=== PATIENT | male | born 1950 | race Caucasian/White ===

== ENCOUNTER 2016-09-05 18:07 | Inpatient (IN) | payer BC, OTHER ==
[~2016-09-05] VITALS: Ht 180.3 cm; Wt 88.4 kg
[2016-09-05] MEDS ORDERED: ASPIRIN 81 MG CHEW PO STA ×2 (18:50→19:58)
--- NOTE | 2016-09-05 18:56 | EMERGENCY ROOM VISIT NOTE ---
History Report prepared by Sarahy: Sandie Patricia Under the Supervision of: Dr. Dmitry Trinh M.D. First contact with patient: 18:46 Chief Complaint: CARDIAC ASSESSMENT Stated Complaint: PRESSURE IS WEAK, CHEST PAIN Nursing Triage Summary: Pt c/o generalized chest tightness x1 month Pt reports pressure radiates into throat History of Present Illness The patient is a 66 year old male who presents to the Emergency Room via significant other with complaints of episodes of chest pain with onset one month ago. The patient has developed chest pressure when he exerts himself. He notes that the pressure is severe, to the point where he must stop what he is doing when he gets the chest pressure. Eating also worsens the chest pressure. The patient states that the pressure radiates into his throat. He becomes short of breath with the episodes of chest pressure. He denies becoming sweaty or nauseous during these episodes, that the pressure radiates into his back or arms , black or bloody stools, pain with deep breaths. The patient states that the pressure became much worse today. The patient notes that he does not have the chest pressure if he is sitting down. Source of History: patient, spouse/significant other Onset: one month ago Position: chest Quality: other (chest pressure ) Timing: other (episodes ) Modifying Factors (Worsening): exertion, eating Modifying Factors (Relieving): rest Associated Symptoms: No diaphoresis, No melena, No nausea Note: He denies hat the pressure radiates into his back or arms, pain with deep breaths. Review of Systems See HPI for pertinent positives & negatives. A total of 10 systems reviewed and were otherwise negative. Past Medical & Surgical Medical Problems: (1) Asthma (2) Exertional angina (3) Hypertension Old medical records were reviewed. Nurse's notes were reviewed and I agree with. Denies history diabetes or prior cardiac disease Hypertension denies increased cholesterol Family History FH: heart disease Significant family history with siblings and parents having premature cardiac disease Social History Smoking Status: Never Smoker Drug Use: none Marital Status: in relationship Occupation Status: employed Current/Historical Medications Scheduled Amlodipine (Norvasc), 10 MG PO QPM Mometasone Furoate (Inhalation (Asmanex Hfa), 1 PUFF PO BID Tadalafil (Cialis), 20 MG PO UD Scheduled PRN Albuterol (Ventolin Hfa), 2 PUFF INH Q6 PRN for SOB/Wheezing Allergies Coded Allergies: Tetanus Toxoid (Unverified Allergy, Unknown, SWELLING TO EXTREMITY, ) Physical Exam Vital Signs Date Time Temp Pulse Resp B/P Pulse Ox O2 Delivery O2 Flow Rate FiO2 09/05/16 19:31 110 09/05/16 19:14 113 20 174/109 98 Room Air 09/05/16 19:09 98 Room Air 09/05/16 18:11 97 Room Air 09/05/16 18:11 36.6 112 20 173/104 98 Room Air Physical Exam General: Non ill appearing middle aged male, in no acute distress, presently pain free HEENT: Normal cephalic atraumatic. Pupils are equal round and reactive to light. Sclerae anicteric. Extraocular movements are intact. Oropharynx is pink with moist mucous membranes. No swelling of the mouth lips or tongue. Neck: Supple with a midline trachea. No meningeal signs or stiffness, no JVD or bruits. No Stridor. Chest: Clear to auscultation bilaterally. No wheezes or rhonchi. No increased work of breathing. Heart: regular rate and rhythm. Abdomen: Soft nontender, nondistended without rebound guarding or rigidity. Extremities: No cyanosis clubbing or edema. No calf tenderness or assymetry Spine/Back. Non tender to palpation. No CVA tenderness Skin: Good turgor without rashes. Neurologic exam: Cranial nerves two through 12 are intact. Motor and sensation are intact and symmetrical throughout. Medical Decision & Procedures ER Provider Diagnostic Interpretation: X-ray results as stated below per interpretation by me and the radiologist: CHEST ONE VIEW PORTABLE CLINICAL HISTORY: CHEST PAIN dyspnea COMPARISON STUDY: No previous studies for comparison. FINDINGS: The bones soft tissues and hemidiaphragms are normal. The cardiomediastinal silhouette is normal. The lungs are clear. The pulmonary vasculature is normal. IMPRESSION: Negative chest. Electronically signed by: Maurice Thapa M.D. 09/05/2016 7:17 PM Dictated Date/Time: 09/05/2016 7:16 PM Laboratory Results 09/05/16 19:00 Red Blood Count 5.21, Mean Corpuscular Volume 92.1, Mean Corpuscular Hemoglobin 32.1, Mean Corpuscular Hemoglobin Concent 34.8, Mean Platelet Volume 9.1, Neutrophils (%) (Auto) 58.0, Lymphocytes (%) (Auto) 26.7, Monocytes (%) (Auto) 10.0, Eosinophils (%) (Auto) 4.3, Basophils (%) (Auto) 0.6, Neutrophils # (Auto ) 4.19, Lymphocytes # (Auto) 1.93, Monocytes # (Auto) 0.72, Eosinophils # (Auto ) 0.31, Basophils # (Auto) 0.04 09/05/16 19:00 Test 09/05/16 19:00 09/05/16 19:04 White Blood Count 7.22 K/uL (4.8-10.8) Red Blood Count 5.21 M/uL (4.7-6.1) Hemoglobin 16.7 g/dL (14.0-18.0) Hematocrit 48.0 % (42-52) Mean Corpuscular Volume 92.1 fL (80-100) Mean Corpuscular Hemoglobin 32.1 pg (25-34) Mean Corpuscular Hemoglobin Concent 34.8 g/dl (32-36) Platelet Count 239 K/uL (130-400) Mean Platelet Volume 9.1 fL (7.4-10.4) Neutrophils (%) (Auto) 58.0 % Lymphocytes (%) (Auto) 26.7 % Monocytes (%) (Auto) 10.0 % Eosinophils (%) (Auto) 4.3 % Basophils (%) (Auto) 0.6 % Neutrophils # (Auto) 4.19 K/uL (1.4-6.5) Lymphocytes # (Auto) 1.93 K/uL (1.2-3.4) Monocytes # (Auto) 0.72 K/uL (0.11-0.59) Eosinophils # (Auto) 0.31 K/uL (0-0.5) Basophils # (Auto) 0.04 K/uL (0-0.2) RDW Standard Deviation 42.1 fL (36.4-46.3) RDW Coefficient of Variation 12.5 % (11.5-14.5) Immature Granulocyte % (Auto) 0.4 % Immature Granulocyte # (Auto) 0.03 K/uL (0.00-0.02) Prothrombin Time 10.2 SECONDS (9.0-12.0) Prothromb Time International Ratio 1.0 (0.9-1.1) Activated Partial Thromboplast Time 27.3 SECONDS (21.0-31.0) Partial Thromboplastin Ratio 1.1 Anion Gap 9.0 mmol/L (3-11) Est Creatinine Clear Calc Drug Dose 70.6 ml/min Estimated GFR () 73.1 Estimated GFR (Non- 63.1 BUN/Creatinine Ratio 16.4 (10-20) Calcium Level 9.8 mg/dl (8.5-10.1) Total Bilirubin 0.3 mg/dl (0.2-1) Direct Bilirubin < 0.1 mg/dl (0-0.2) Aspartate Amino Transf (AST/SGOT) 18 U/L (15-37) Alanine Aminotransferase (ALT/SGPT) 26 U/L (12-78) Alkaline Phosphatase 82 U/L (45-117) Total Protein 8.1 gm/dl (6.4-8.2) Albumin 4.3 gm/dl (3.4-5.0) Lipase 134 U/L (73-393) Hepatitis C Antibody Screen NEG (NEG) Bedside Troponin I 0.000 ng/ml (0-0.045) Laboratory studies as stated above per my review. ECG Indication: chest pain Rate (beats per minute): 111 Rhythm: sinus tachycardia Findings: no acute ischemic change, left axis deviation, other ( poor baseline) Comparison ECG Date: no prior available Change: EKG 2: Sinus tachycardia, rate 109, short AK interval, no ischemia, no significant change when compared to EKG 2. ED Course 184: Past medical records reviewed. The patient was evaluated in room C2, and a complete history and physical examination were performed. 1850: Aspirin 324 mg PO 1930: Upon reevaluation, the patient is resting comfortably. I discussed the results and treatment plan with the patient. He verbalized agreement of the treatment plan. The patient will be evaluated for further management. 1930: I discussed the case with Dr. Roche ([facility]); he will further evaluate the patient. Medical Decision Differentials include, but are not limited to; unstable angina, acute coronary syndrome, electrolyte or metabolic abnormality, anemia, GERD. This patient comes in as described above. He was placed in room C2. He was placed in the triage system as a priority patient and I saw him promptly. He is here for treatment and evaluation of exertional chest pain. He is pain-free at present but with minimal exertion he gets chest pain which is alleviated by rest. He does have a significant cardiac risk factors with strong family history and hypertension. I ordered aspirin but he declined as he says it gives him significant GI upset if he takes anything without food and will start giving him chest pain. EKG does not show any acute ischemic changes or ectopy. I did a second EKG while was here and there is no change compared to the first. Chest x-ray does not show congestive heart failure pneumonia or pneumothorax. Cardiac enzymes are negative thus far. Given his history, I'm very concerned for unstable angina. I do think he needs to be admitted for further treatment and evaluation. I have consult the [facility] hospitalist who saw him in the ER and will admit him for these measures. Consults Time Called: 1929 Consulting Physician: Dr. Roche ([facility]) Returned Call: 1930 I discussed the case with Dr. Roche ([facility]); he will further evaluate the patient. Impression Primary Impression: Unstable angina Additional Impression: Chest pain, precordial Scribe Attestation The scribe's documentation has been prepared under my direction and personally reviewed by me in its entirety. I confirm that the note above accurately reflects all work, treatment, procedures, and medical decision making performed by me. Departure Information Dispostion Being Evaluated By Hospitalist Referrals No Doctor, Assigned (PCP) Patient Instructions My [facility] Problem Qualifiers
[2016-09-05 19:11] LABS: BASO % 0.6 %; BASO ABS # 0.04 K/uL (0-0.2); COMPLETE YES; EOS % 4.3 %; IG% 0.4 %; LYMPH % 26.7 %; LYMPH ABS # 1.93 K/uL (1.2-3.4); MEAN CELL VOLUME 92.1 fL (80-100); MEAN CORPUSCULAR HEMOGLOBIN 32.1 pg (25-34); MEAN CORPUSCULAR HGB CONC 34.8 g/dl (32-36); MEAN PLATELET VOLUME 9.1 fL (7.4-10.4); PLATELET COUNT 239 K/uL (130-400); RED BLOOD COUNT 5.21 M/uL (4.7-6.1); WHITE BLOOD COUNT 7.22 K/uL (4.8-10.8)
--- NOTE | 2016-09-05 19:18 | DIAGNOSTIC IMAGING REPORT ---
CHEST ONE VIEW PORTABLE CLINICAL HISTORY: CHEST PAIN dyspnea COMPARISON STUDY: No previous studies for comparison. FINDINGS: The bones soft tissues and hemidiaphragms are normal. The cardiomediastinal silhouette is normal. The lungs are clear. The pulmonary vasculature is normal. IMPRESSION: Negative chest. Electronically signed by: Maurice Thapa M.D. 09/05/2016 7:17 PM Dictated Date/Time: 09/05/2016 7:16 PM
[2016-09-05 19:21] LABS: PARTIAL THROMBOPLASTIN RATIO 1.1; PROTHROMBIN TIME (PATIENT) 10.2 SECONDS (9.0-12.0)
[2016-09-05 19:28] LABS: ALT/SGPT 26 U/L (12-78); BLOOD UREA NITROGEN 20 mg/dl (7-18); BUN/CREATININE RATIO 16.4 (10-20); CALCIUM 9.8 mg/dl (8.5-10.1); CARBON DIOXIDE 27 mmol/L (21-32); CHLORIDE 103 mmol/L (98-107); GLUCOSE 93 mg/dl (70-99); POTASSIUM 3.9 mmol/L (3.5-5.1); SODIUM 139 mmol/L (136-145)
[2016-09-05 19:33] LABS: ALKALINE PHOSPHATASE 82 U/L (45-117); AST/SGOT 18 U/L (15-37)
[2016-09-05] MEDS ORDERED: MOME16.7 PO (19:33)
[2016-09-05] MEDS ORDERED: AMLO-114 PO (19:33)
[2016-09-05] MEDS ORDERED: ALBUTEROL HFA 8 GM INHALER INH PRN (20:00)
[2016-09-05] MEDS ORDERED: NITROGLYCERIN 0.4 MG SL PER TAB CHARGE SL PRN (20:00)
[2016-09-05] MEDS ORDERED: TADA10TA PO (20:00)
[2016-09-05] MEDS ORDERED: ONDANSETRON INJ 2 MG/ML 2 ML VIAL IV PRN (20:00)
[2016-09-05] MEDS ORDERED: ACETAMINOPHEN 325 MG TAB PO PRN (20:00)
[2016-09-05] MEDS ORDERED: PRVHFAIN INH (20:00)
[2016-09-05] MEDS ORDERED: ASPIRIN 81 MG CHEW ONE (20:41)
[2016-09-05 21:11] VITALS: BP 177/116; PULSE 121; TEMP 36.6; O2SAT 92; Ht 180.3 cm; Wt 88.4 kg
[2016-09-05] MEDS ORDERED: METOPROLOL TARTRATE 1 MG/ML VIAL IV PRN (21:30)
--- NOTE | 2016-09-05 21:36 | History and Physical ---
History & Physical Date & Time of Service: Sep 05, 2016 at 21:25 Chief Complaint: Exertional Angina Primary Care Physician: Dustin Salazar M.D. History of Present Illness Source: patient, spouse, clinic records, hospital records Patient is a 66 y/o male with a h/o GERD who presents for evaluation of exertional chest pain. Patient notes upper chest/throat tightness that radiates to the jaw with exertion for the past month. He denies any pain/tightness at rest. Patient states that he has never experienced anything like this before. Patient notes a longstanding h/o heartburn since childhood, but these current symptoms feel distinctly different. He is occasionally compliant with his amlodipine. He is a nonsmoker. His FMHx is significant for father and brother with heart disease in their 50's and mother with heart disease in her 70's. In the ED, troponin was negative and EKG did not show any ischemic changes. Past Medical/Surgical History Medical Problems: (1) Asthma Status: Chronic Family History FH: heart disease Social History Smoking Status: Unknown if Ever Smoked Drug Use: none Marital Status: in relationship Occupational Status: employed Allergies Coded Allergies: Tetanus Toxoid (Unverified Allergy, Unknown, SWELLING TO EXTREMITY, ) Home Medications Scheduled Amlodipine (Norvasc), 10 MG PO QPM Mometasone Furoate (Inhalation (Asmanex Hfa), 1 PUFF PO BID Tadalafil (Cialis), 20 MG PO UD Scheduled PRN Albuterol (Ventolin Hfa), 2 PUFF INH Q6 PRN for SOB/Wheezing Review of Systems Constitutional- denies fevers or chills Eyes- denies sudden vision changes ENT- denies sore throat or congestion Pulmonary- denies SOB or cough Cardiac- see above GI- denies abdominal pain, nausea, vomiting, diarrhea - denies dysuria or hematuria Musculoskeletal- denies joint pain or swelling Dermatologic- denies rash or bruise Neuro- denies weakness, numbness or tingling Psych- denies depression or anxiety . Physical Exam Vital Signs Date Time Temp Pulse Resp B/P Pulse Ox O2 Delivery O2 Flow Rate FiO2 09/05/16 21:11 36.6 121 18 177/116 92 Room Air 09/05/16 20:38 113 20 148/107 95 09/05/16 19:31 110 09/05/16 19:14 113 20 174/109 98 Room Air 09/05/16 19:09 98 Room Air 09/05/16 18:11 97 Room Air 09/05/16 18:11 36.6 112 20 173/104 98 Room Air General- awake; alert; NAD Eyes- EOMI; no scleral icterus Neck- no stridor; trachea midline Lungs- CTA bilaterally; no wheezes/crackles Heart- RRR; no m/r/g Abdomen- soft; NTND; nBS Back- no gross abnormalities Extremities- no c/c/e; no deformity Neuro- no focal deficits Skin- no appreciable rash or bruise . Diagnostics Laboratory Results Results Past 24 Hours Test 09/05/16 18:50 09/05/16 19:00 09/05/16 19:04 09/05/16 21:18 Range/Units Creatine Kinase MB Ratio 1.0 0-3.0 White Blood Count 7.22 4.8-10.8 K/uL Red Blood Count 5.21 4.7-6.1 M/uL Hemoglobin 16.7 14.0-18.0 g/dL Hematocrit 48.0 42-52 % Mean Corpuscular Volume 92.1 80-100 fL Mean Corpuscular Hemoglobin 32.1 25-34 pg Mean Corpuscular Hemoglobin Concent 34.8 32-36 g/dl Platelet Count 239 130-400 K/uL Mean Platelet Volume 9.1 7.4-10.4 fL Neutrophils (%) (Auto) 58.0 % Lymphocytes (%) (Auto) 26.7 % Monocytes (%) (Auto) 10.0 % Eosinophils (%) (Auto) 4.3 % Basophils (%) (Auto) 0.6 % Neutrophils # (Auto) 4.19 1.4-6.5 K/uL Lymphocytes # (Auto) 1.93 1.2-3.4 K/uL Monocytes # (Auto) 0.72 0.11-0.59 K/uL Eosinophils # (Auto) 0.31 0-0.5 K/uL Basophils # (Auto) 0.04 0-0.2 K/uL RDW Standard Deviation 42.1 36.4-46.3 fL RDW Coefficient of Variation 12.5 11.5-14.5 % Immature Granulocyte % (Auto) 0.4 % Immature Granulocyte # (Auto) 0.03 0.00-0.02 K/uL Prothrombin Time 10.2 9.0-12.0 SECONDS Prothromb Time International Ratio 1.0 0.9-1.1 Activated Partial Thromboplast Time 27.3 21.0-31.0 SECONDS Partial Thromboplastin Ratio 1.1 Sodium Level 139 136-145 mmol/L Potassium Level 3.9 3.5-5.1 mmol/L Chloride Level 103 98-107 mmol/L Carbon Dioxide Level 27 21-32 mmol/L Anion Gap 9.0 3-11 mmol/L Blood Urea Nitrogen 20 7-18 mg/dl Creatinine 1.20 0.60-1.40 mg/dl Est Creatinine Clear Calc Drug Dose 70.6 ml/min Estimated GFR () 73.1 Estimated GFR (Non- 63.1 BUN/Creatinine Ratio 16.4 10-20 Random Glucose 93 70-99 mg/dl Calcium Level 9.8 8.5-10.1 mg/dl Total Bilirubin 0.3 0.2-1 mg/dl Direct Bilirubin < 0.1 0-0.2 mg/dl Aspartate Amino Transf (AST/SGOT) 18 15-37 U/L Alanine Aminotransferase (ALT/SGPT) 26 12-78 U/L Alkaline Phosphatase 82 45-117 U/L Total Creatine Kinase 199 39-308 U/L Creatine Kinase MB 2.0 0.5-3.6 ng/ml Total Protein 8.1 6.4-8.2 gm/dl Albumin 4.3 3.4-5.0 gm/dl Lipase 134 73-393 U/L Bedside Troponin I 0.000 0-0.045 ng/ml Diagnostic Radiology CXR Negative chest. EKG No acute ischemic changes Impression Assessment and Plan Patient is a 66 y/o male with a h/o HTN and significant FMHx who presents for evaluation of exertional chest tightness x1 month. Exertional angina - history very concerning for cardiac etiology - trend cardiac enzymes - Cardiology consult: determine stress vs cath - aspirin HTN - continue amlodipine - metoprolol PRN GERD - start pantoprazole Mild asthma - not active - continue inhalers DVT prophylaxis with SCDs Advanced Directives Existing Living Will: No Existing Power of Health Inspector Food: No VTE Prophylaxis VTE Risk Assessment Done? Y/N: Yes Risk Level: Low
[2016-09-05] MEDS: AMLODIPINE BESYLATE 5 MG TAB PO SCH (23:27)
[2016-09-05] MEDS: MOMETASONE FUROATE 14 PUFF/1 INHALER INH SCH (23:27)
[2016-09-05 23:58] VITALS: BP 153/99; PULSE 100; TEMP 36.7; O2SAT 98
[2016-09-05 23:59] VITALS: O2SAT 98
[2016-09-06] VITALS (8 sets, daily range): BP systolic 129–152; BP diastolic 84–108; PULSE 100–116; TEMP 36.4–36.6; O2SAT 94–99
[2016-09-06 01:43] LABS: CKMB/CK RATIO 0.8 (0-3.0)
[2016-09-06] MEDS: PANTOprazole SOD 40 MG TAB PO SCH (05:45)
[2016-09-06] MEDS ORDERED: POTASSIUM CHLORIDE 10 MEQ TABCR PO STA (06:02)
[2016-09-06] MEDS ORDERED: METOPROLOL TARTRATE 25 MG TAB PO ONE (06:02)
--- NOTE | 2016-09-06 06:04 | Progress Note ---
Internal Med Progress Note Date of Service: Sep 06, 2016. Provider Documentation: Made aware by RN of PVCs. initiate low dose BB to suppress ectopy additional K given Vital Signs: Date Time Temp Pulse Resp B/P Pulse Ox O2 Delivery O2 Flow Rate FiO2 09/06/16 07:57 36.6 101 18 145/91 97 Room Air 09/06/16 04:00 98 Room Air 09/06/16 03:40 36.6 106 16 129/84 96 Room Air 09/05/16 23:59 98 Room Air 09/05/16 23:58 36.7 100 17 153/99 98 Room Air 09/05/16 22:36 120 161/106 09/05/16 21:11 36.6 121 18 177/116 92 Room Air 09/05/16 20:38 113 20 148/107 95 09/05/16 19:31 110 09/05/16 19:14 113 20 174/109 98 Room Air 09/05/16 19:09 98 Room Air 09/05/16 18:11 97 Room Air 09/05/16 18:11 36.6 112 20 173/104 98 Room Air Lab Results: Results Past 24 Hours Test 09/05/16 18:50 09/05/16 19:00 09/05/16 19:04 09/06/16 01:05 Range/Units Creatine Kinase MB Ratio 1.0 0.8 0-3.0 White Blood Count 7.22 4.8-10.8 K/uL Red Blood Count 5.21 4.7-6.1 M/uL Hemoglobin 16.7 14.0-18.0 g/dL Hematocrit 48.0 42-52 % Mean Corpuscular Volume 92.1 80-100 fL Mean Corpuscular Hemoglobin 32.1 25-34 pg Mean Corpuscular Hemoglobin Concent 34.8 32-36 g/dl Platelet Count 239 130-400 K/uL Mean Platelet Volume 9.1 7.4-10.4 fL Neutrophils (%) (Auto) 58.0 % Lymphocytes (%) (Auto) 26.7 % Monocytes (%) (Auto) 10.0 % Eosinophils (%) (Auto) 4.3 % Basophils (%) (Auto) 0.6 % Neutrophils # (Auto) 4.19 1.4-6.5 K/uL Lymphocytes # (Auto) 1.93 1.2-3.4 K/uL Monocytes # (Auto) 0.72 0.11-0.59 K/uL Eosinophils # (Auto) 0.31 0-0.5 K/uL Basophils # (Auto) 0.04 0-0.2 K/uL RDW Standard Deviation 42.1 36.4-46.3 fL RDW Coefficient of Variation 12.5 11.5-14.5 % Immature Granulocyte % (Auto) 0.4 % Immature Granulocyte # (Auto) 0.03 0.00-0.02 K/uL Prothrombin Time 10.2 9.0-12.0 SECONDS Prothromb Time International Ratio 1.0 0.9-1.1 Activated Partial Thromboplast Time 27.3 21.0-31.0 SECONDS Partial Thromboplastin Ratio 1.1 Sodium Level 139 136-145 mmol/L Potassium Level 3.9 3.5-5.1 mmol/L Chloride Level 103 98-107 mmol/L Carbon Dioxide Level 27 21-32 mmol/L Anion Gap 9.0 3-11 mmol/L Blood Urea Nitrogen 20 7-18 mg/dl Creatinine 1.20 0.60-1.40 mg/dl Est Creatinine Clear Calc Drug Dose 70.6 ml/min Estimated GFR () 73.1 Estimated GFR (Non- 63.1 BUN/Creatinine Ratio 16.4 10-20 Random Glucose 93 70-99 mg/dl Calcium Level 9.8 8.5-10.1 mg/dl Total Bilirubin 0.3 0.2-1 mg/dl Direct Bilirubin < 0.1 0-0.2 mg/dl Aspartate Amino Transf (AST/SGOT) 18 15-37 U/L Alanine Aminotransferase (ALT/SGPT) 26 12-78 U/L Alkaline Phosphatase 82 45-117 U/L Total Creatine Kinase 199 157 39-308 U/L Creatine Kinase MB 2.0 1.3 0.5-3.6 ng/ml Total Protein 8.1 6.4-8.2 gm/dl Albumin 4.3 3.4-5.0 gm/dl Lipase 134 73-393 U/L Hepatitis C Antibody Screen NEG NEG Bedside Troponin I 0.000 0-0.045 ng/ml Troponin I < 0.015 0-0.045 ng/ml Test 09/06/16 06:30 Range/Units White Blood Count 5.25 4.8-10.8 K/uL Red Blood Count 4.80 4.7-6.1 M/uL Hemoglobin 14.8 14.0-18.0 g/dL Hematocrit 43.3 42-52 % Mean Corpuscular Volume 90.2 80-100 fL Mean Corpuscular Hemoglobin 30.8 25-34 pg Mean Corpuscular Hemoglobin Concent 34.2 32-36 g/dl Platelet Count 219 130-400 K/uL Mean Platelet Volume 8.8 7.4-10.4 fL Neutrophils (%) (Auto) 56.0 % Lymphocytes (%) (Auto) 26.1 % Monocytes (%) (Auto) 11.8 % Eosinophils (%) (Auto) 5.3 % Basophils (%) (Auto) 0.6 % Neutrophils # (Auto) 2.94 1.4-6.5 K/uL Lymphocytes # (Auto) 1.37 1.2-3.4 K/uL Monocytes # (Auto) 0.62 0.11-0.59 K/uL Eosinophils # (Auto) 0.28 0-0.5 K/uL Basophils # (Auto) 0.03 0-0.2 K/uL RDW Standard Deviation 41.0 36.4-46.3 fL RDW Coefficient of Variation 12.4 11.5-14.5 % Immature Granulocyte % (Auto) 0.2 % Immature Granulocyte # (Auto) 0.01 0.00-0.02 K/uL Activated Partial Thromboplast Time 27.7 21.0-31.0 SECONDS Partial Thromboplastin Ratio 1.1 Sodium Level 140 136-145 mmol/L Potassium Level 3.8 3.5-5.1 mmol/L Chloride Level 106 98-107 mmol/L Carbon Dioxide Level 25 21-32 mmol/L Anion Gap 9.0 3-11 mmol/L Blood Urea Nitrogen 17 7-18 mg/dl Creatinine 1.10 0.60-1.40 mg/dl Est Creatinine Clear Calc Drug Dose 71.3 ml/min Estimated GFR () 81.2 Estimated GFR (Non- 70.1 BUN/Creatinine Ratio 15.2 10-20 Random Glucose 102 70-99 mg/dl Calcium Level 9.1 8.5-10.1 mg/dl Magnesium Level 2.2 1.8-2.4 mg/dl Troponin I < 0.015 0-0.045 ng/ml Thyroid Stimulating Hormone (TSH) 2.360 0.300-4.500 uIu/ml
[2016-09-06 06:41] LABS: BASO % 0.6 %; BASO ABS # 0.03 K/uL (0-0.2); COMPLETE YES; EOS % 5.3 %; HEMATOCRIT 43.3 % (42-52); IG% 0.2 %; LYMPH % 26.1 %; LYMPH ABS # 1.37 K/uL (1.2-3.4); MEAN CELL VOLUME 90.2 fL (80-100); MEAN CORPUSCULAR HEMOGLOBIN 30.8 pg (25-34); MEAN CORPUSCULAR HGB CONC 34.2 g/dl (32-36); MEAN PLATELET VOLUME 8.8 fL (7.4-10.4); MONO % 11.8 %; PLATELET COUNT 219 K/uL (130-400); WHITE BLOOD COUNT 5.25 K/uL (4.8-10.8)
[2016-09-06 06:51] LABS: PARTIAL THROMBOPLASTIN RATIO 1.1
[2016-09-06 07:13] LABS: BLOOD UREA NITROGEN 17 mg/dl (7-18); BUN/CREATININE RATIO 15.2 (10-20); CALCIUM 9.1 mg/dl (8.5-10.1); CARBON DIOXIDE 25 mmol/L (21-32); CHLORIDE 106 mmol/L (98-107); GLUCOSE 102 mg/dl (70-99); MAGNESIUM 2.2 mg/dl (1.8-2.4); POTASSIUM 3.8 mmol/L (3.5-5.1); SODIUM 140 mmol/L (136-145)
[2016-09-06] MEDS: MOMETASONE FUROATE 14 PUFF/1 INHALER INH SCH ×3 (08:06→21:00)
[2016-09-06] MEDS ORDERED: CLOPIDOGREL BISULFATE 75 MG TAB PO ONE (11:00)
--- NOTE | 2016-09-06 11:23 | CARDIOLOGY CONSULTATION ---
DATE OF CONSULTATION: 09/06/2016 DATE OF CONSULTATION: 09/06/2016. REFERRING PHYSICIAN: Myriam Sherman. REASON FOR CONSULTATION: Chest pain. HISTORY OF PRESENT ILLNESS: This is a 66-year-old male patient who has a history of severe GERD, mild essential hypertension and a history of asthma. For approximately a month he has been having typical exertional chest pain radiating up into his jaw and resolving with rest. His chest pain is associated with shortness of breath. He has had no resting discomfort. He has a very strong family history of coronary artery disease. He became concerned and presented to the Emergency Department. His admission EKGs showed no acute changes. His first set of cardiac markers are negative. ALLERGIES: TETANUS TOXOID. PAST MEDICAL HISTORY: As outlined above, the patient has a history of mild essential hypertension. He is also treated for asthma. He has had a history of GERD and takes frequent antacids and a PPI. SOCIAL HISTORY: He is a lifelong nonsmoker. He lives with his domestic partner. FAMILY MEDICAL HISTORY: Very significant for multiple members including siblings that have had coronary artery disease. REVIEW OF SYSTEMS: A 10-point review of systems is negative except for the history of chief complaint. PHYSICAL EXAMINATION: GENERAL: He is alert and oriented in no acute distress. VITAL SIGNS: Blood pressure is 145/90, pulse is regular at 90 beats per minute. He is afebrile. HEAD, EYES, EARS, NOSE, AND THROAT: He is normocephalic. Pupils are equal and reactive to light. Extraocular muscles are intact bilaterally. NECK: The neck veins are flat. Carotids have good upstrokes bilaterally without bruits. Thyroid is nonpalpable. RESPIRATORY: Breath sounds equal bilaterally and clear to auscultation. CARDIOVASCULAR: Heart has a regular rhythm. Normal S1, S2. No S3, S4. No cardiac rubs or murmurs. GASTROINTESTINAL: Abdomen is soft, nontender without organomegaly. EXTREMITIES: Free of edema, digit clubbing, or cyanosis. NEUROLOGIC: Grossly intact. SKIN: Warm to touch. LYMPH NODES: Negative to palpation. LABORATORY DATA: Troponin I are negative. Hemoglobin is 14.8, creatinine is 1.1, potassium is 3.8. TSH is 2.36. IMPRESSION: 1. Chest and neck discomfort with activity which is very suspicious for new onset angina. 2. History of asthma. 3. History of gastroesophageal reflux disease. 4. Strong family history of coronary artery disease. RECOMMENDATIONS: As outlined above, the patient's symptoms are very typical for angina. With his strong family history of heart disease, I think it is best that we move past the stress testing and directly to cardiac catheterization on a need to know basis. I have explained the risk, benefit and intent of the procedure to him including the potential for catheter based intervention such as balloon angioplasty or intercoronary stenting. He is agreeable and unless his clinical course changes he will be completed Thursday.
[2016-09-06] MEDS: ASPIRIN 81 MG ECTAB PO SCH (11:57)
--- NOTE | 2016-09-06 13:28 | Progress Note ---
Internal Med Progress Note Date of Service: Sep 06, 2016. Provider Documentation: SUBJECTIVE: Patient is seen and examined at bedside. Currently denies any chest pain, SOB, palpitations, dizziness. Offers no complaints. OBJECTIVE: Vital Signs-as noted below Physical Exam: Vitals signs as noted above General Appearance:Moderately built and nourished, no apparent distress Head: normocephalic, Atraumatic Eyes: normal inspection, EOMI, PERRLA Neck: supple, no JVD, Trachea midline Respiratory/Chest: Decreased breath sounds, CTA Cardiovascular: S1, S2, No murmur Abdomen/GI:Soft, Non tender, Bowel sounds present Extremities/Musculoskelatal:normal inspection, no edema Neurologic/Psych:AAOX3, grossly no focal neurological deficits Skin: normal color, warm Lab data as noted below. ASSESSMENT & PLAN: New Onset Angina: Presented with exertional chest pain since one month Positive family history of heart disease Troponin X 2: Negative EKG: No signs of ischemia TSH:wnl Appreciate cardiology input Planned for cardiac cath on Thursday Continue aspirin, plavix, BB, NTG PRN HTN continue amlodipine, BB Continue to monitor GERD Continue pantoprazole Mild asthma No signs of active exacerbation continue inhalers DVT PX: SCDs DISPOSITION: Planned for cardiac cath on Thursday Vital Signs: Date Time Temp Pulse Resp B/P Pulse Ox O2 Delivery O2 Flow Rate FiO2 09/06/16 10:51 36.5 100 18 132/94 98 Room Air 09/06/16 07:57 36.6 101 18 145/91 97 Room Air 09/06/16 04:00 98 Room Air 09/06/16 03:40 36.6 106 16 129/84 96 Room Air 09/05/16 23:59 98 Room Air 09/05/16 23:58 36.7 100 17 153/99 98 Room Air 09/05/16 22:36 120 161/106 09/05/16 21:11 36.6 121 18 177/116 92 Room Air 09/05/16 20:38 113 20 148/107 95 09/05/16 19:31 110 09/05/16 19:14 113 20 174/109 98 Room Air 09/05/16 19:09 98 Room Air 09/05/16 18:11 97 Room Air 09/05/16 18:11 36.6 112 20 173/104 98 Room Air Lab Results: Results Past 24 Hours Test 09/05/16 18:50 09/05/16 19:00 09/05/16 19:04 09/06/16 01:05 Range/Units Creatine Kinase MB Ratio 1.0 0.8 0-3.0 White Blood Count 7.22 4.8-10.8 K/uL Red Blood Count 5.21 4.7-6.1 M/uL Hemoglobin 16.7 14.0-18.0 g/dL Hematocrit 48.0 42-52 % Mean Corpuscular Volume 92.1 80-100 fL Mean Corpuscular Hemoglobin 32.1 25-34 pg Mean Corpuscular Hemoglobin Concent 34.8 32-36 g/dl Platelet Count 239 130-400 K/uL Mean Platelet Volume 9.1 7.4-10.4 fL Neutrophils (%) (Auto) 58.0 % Lymphocytes (%) (Auto) 26.7 % Monocytes (%) (Auto) 10.0 % Eosinophils (%) (Auto) 4.3 % Basophils (%) (Auto) 0.6 % Neutrophils # (Auto) 4.19 1.4-6.5 K/uL Lymphocytes # (Auto) 1.93 1.2-3.4 K/uL Monocytes # (Auto) 0.72 0.11-0.59 K/uL Eosinophils # (Auto) 0.31 0-0.5 K/uL Basophils # (Auto) 0.04 0-0.2 K/uL RDW Standard Deviation 42.1 36.4-46.3 fL RDW Coefficient of Variation 12.5 11.5-14.5 % Immature Granulocyte % (Auto) 0.4 % Immature Granulocyte # (Auto) 0.03 0.00-0.02 K/uL Prothrombin Time 10.2 9.0-12.0 SECONDS Prothromb Time International Ratio 1.0 0.9-1.1 Activated Partial Thromboplast Time 27.3 21.0-31.0 SECONDS Partial Thromboplastin Ratio 1.1 Sodium Level 139 136-145 mmol/L Potassium Level 3.9 3.5-5.1 mmol/L Chloride Level 103 98-107 mmol/L Carbon Dioxide Level 27 21-32 mmol/L Anion Gap 9.0 3-11 mmol/L Blood Urea Nitrogen 20 7-18 mg/dl Creatinine 1.20 0.60-1.40 mg/dl Est Creatinine Clear Calc Drug Dose 70.6 ml/min Estimated GFR () 73.1 Estimated GFR (Non- 63.1 BUN/Creatinine Ratio 16.4 10-20 Random Glucose 93 70-99 mg/dl Calcium Level 9.8 8.5-10.1 mg/dl Total Bilirubin 0.3 0.2-1 mg/dl Direct Bilirubin < 0.1 0-0.2 mg/dl Aspartate Amino Transf (AST/SGOT) 18 15-37 U/L Alanine Aminotransferase (ALT/SGPT) 26 12-78 U/L Alkaline Phosphatase 82 45-117 U/L Total Creatine Kinase 199 157 39-308 U/L Creatine Kinase MB 2.0 1.3 0.5-3.6 ng/ml Total Protein 8.1 6.4-8.2 gm/dl Albumin 4.3 3.4-5.0 gm/dl Lipase 134 73-393 U/L Hepatitis C Antibody Screen NEG NEG Bedside Troponin I 0.000 0-0.045 ng/ml Troponin I < 0.015 0-0.045 ng/ml Test 09/06/16 06:30 Range/Units White Blood Count 5.25 4.8-10.8 K/uL Red Blood Count 4.80 4.7-6.1 M/uL Hemoglobin 14.8 14.0-18.0 g/dL Hematocrit 43.3 42-52 % Mean Corpuscular Volume 90.2 80-100 fL Mean Corpuscular Hemoglobin 30.8 25-34 pg Mean Corpuscular Hemoglobin Concent 34.2 32-36 g/dl Platelet Count 219 130-400 K/uL Mean Platelet Volume 8.8 7.4-10.4 fL Neutrophils (%) (Auto) 56.0 % Lymphocytes (%) (Auto) 26.1 % Monocytes (%) (Auto) 11.8 % Eosinophils (%) (Auto) 5.3 % Basophils (%) (Auto) 0.6 % Neutrophils # (Auto) 2.94 1.4-6.5 K/uL Lymphocytes # (Auto) 1.37 1.2-3.4 K/uL Monocytes # (Auto) 0.62 0.11-0.59 K/uL Eosinophils # (Auto) 0.28 0-0.5 K/uL Basophils # (Auto) 0.03 0-0.2 K/uL RDW Standard Deviation 41.0 36.4-46.3 fL RDW Coefficient of Variation 12.4 11.5-14.5 % Immature Granulocyte % (Auto) 0.2 % Immature Granulocyte # (Auto) 0.01 0.00-0.02 K/uL Activated Partial Thromboplast Time 27.7 21.0-31.0 SECONDS Partial Thromboplastin Ratio 1.1 Sodium Level 140 136-145 mmol/L Potassium Level 3.8 3.5-5.1 mmol/L Chloride Level 106 98-107 mmol/L Carbon Dioxide Level 25 21-32 mmol/L Anion Gap 9.0 3-11 mmol/L Blood Urea Nitrogen 17 7-18 mg/dl Creatinine 1.10 0.60-1.40 mg/dl Est Creatinine Clear Calc Drug Dose 71.3 ml/min Estimated GFR () 81.2 Estimated GFR (Non- 70.1 BUN/Creatinine Ratio 15.2 10-20 Random Glucose 102 70-99 mg/dl Calcium Level 9.1 8.5-10.1 mg/dl Magnesium Level 2.2 1.8-2.4 mg/dl Troponin I < 0.015 0-0.045 ng/ml Thyroid Stimulating Hormone (TSH) 2.360 0.300-4.500 uIu/ml
[2016-09-06] MEDS: METOPROLOL TARTRATE 25 MG TAB PO SCH (16:49)
[2016-09-06] MEDS: AMLODIPINE BESYLATE 5 MG TAB PO SCH (16:50)
[2016-09-07] VITALS (8 sets, daily range): BP systolic 101–128; BP diastolic 70–90; PULSE 94–110; TEMP 36.3–36.8; O2SAT 96–98
[2016-09-07] MEDS: PANTOprazole SOD 40 MG TAB PO SCH (03:53)
[2016-09-07 07:19] LABS: BUN/CREATININE RATIO 13.9 (10-20); CALCIUM 8.3 mg/dl (8.5-10.1); CREATININE 1.3 mg/dl (0.60-1.40); MAGNESIUM 2.5 mg/dl (1.8-2.4); POTASSIUM 4.3 mmol/L (3.5-5.1)
[2016-09-07] MEDS: ASPIRIN 81 MG ECTAB PO SCH (08:25)
[2016-09-07] MEDS: CLOPIDOGREL BISULFATE 75 MG TAB PO SCH (08:26)
[2016-09-07] MEDS: METOPROLOL TARTRATE 25 MG TAB PO SCH ×2 (08:26→20:49)
[2016-09-07] MEDS: MOMETASONE FUROATE 14 PUFF/1 INHALER INH SCH ×2 (08:28→20:49)
[2016-09-07] MEDS ORDERED: DC ALL ANTICOAGULANTS ONE (10:15)
--- NOTE | 2016-09-07 10:36 | PROGRESS NOTE ---
DATE: 09/07/2016 FOLLOWUP VISIT SUBJECTIVE: The patient was admitted with classic new onset exertional angina. He is scheduled for a cardiac catheterization in the morning. He had an uneventful night. All questions were answered regarding cardiac catheterization and he is willing to proceed. OBJECTIVE: GENERAL: He is alert and oriented in no acute distress. VITAL SIGNS: Blood pressure is 100/70. Pulse is regular at 100 beats per minute. He is afebrile. HEENT: He is normocephalic. Pupils are equal and reactive to light. Extraocular muscles are intact bilaterally. NECK: The neck veins are flat. Carotids have good upstrokes bilaterally without bruits. Thyroid is nonpalpable. RESPIRATORY: Breath sounds equal bilaterally and clear to auscultation. CARDIOVASCULAR: Heart has a regular rhythm. Normal S1, S2. No S3, S4. No cardiac rubs or murmurs. GASTROINTESTINAL: Abdomen is soft, nontender without organomegaly. EXTREMITIES: Free of edema, digit clubbing, or cyanosis. NEUROLOGIC: Grossly intact. SKIN: Warm to touch. LYMPH NODES: Negative to palpation. LABORATORY DATA: Potassium is 3.8, creatinine is 1.1, hemoglobin is 14.8. IMPRESSION: 1. Classic new onset angina. 2. Negative cardiac markers. 3. History of gastroesophageal reflux disease. 4. Asthma. RECOMMENDATIONS: The patient had an 8-beat run of asymptomatic nonsustained ventricular tachycardia last night. Otherwise, his night was uneventful and we still plan on elective cardiac catheterization in the morning.
--- NOTE | 2016-09-07 13:58 | Progress Note ---
Internal Med Progress Note Date of Service: Sep 07, 2016. Provider Documentation: SUBJECTIVE: Patient is seen and examined at bedside. Had 8 beats of NSVT overnight but asymptomatic. Currently denies any chest pain, SOB, palpitations, dizziness. Offers no complaints. Planned for cardiac cath tomorrow. OBJECTIVE: Vital Signs-as noted below Physical Exam: Vitals signs as noted above General Appearance:Moderately built and nourished, no apparent distress Head: normocephalic, Atraumatic Eyes: normal inspection, EOMI, PERRLA Neck: supple, no JVD, Trachea midline Respiratory/Chest: Decreased breath sounds, CTA Cardiovascular: S1, S2, No murmur Abdomen/GI:Soft, Non tender, Bowel sounds present Extremities/Musculoskelatal:normal inspection, no edema Neurologic/Psych:AAOX3, grossly no focal neurological deficits Skin: normal color, warm Lab data as noted below. ASSESSMENT & PLAN: New Onset Angina: Presented with exertional chest pain since one month Positive family history of heart disease Troponin X 2: Negative EKG: No signs of ischemia TSH:wnl Appreciate cardiology input Planned for cardiac cath tomorrow Continue aspirin, plavix, BB, NTG PRN NSVT: Had 8-beats of NSVT yesterday Asymptomatic HTN continue amlodipine, BB Continue to monitor GERD Continue pantoprazole Mild asthma No signs of active exacerbation continue inhalers DVT PX: SCDs DISPOSITION: Planned for cardiac cath tomorrow Vital Signs: Date Time Temp Pulse Resp B/P Pulse Ox O2 Delivery O2 Flow Rate FiO2 09/07/16 11:53 36.6 97 16 128/90 98 Room Air 09/07/16 07:34 36.6 109 16 101/70 98 Room Air 09/07/16 04:00 98 Room Air 09/07/16 03:49 36.5 103 18 112/79 96 Room Air 09/06/16 23:59 Room Air 09/06/16 23:37 36.5 103 16 136/89 94 Room Air 09/06/16 20:00 98 Room Air 09/06/16 18:54 36.5 102 20 139/96 97 Room Air 09/06/16 16:00 Room Air 09/06/16 15:22 36.4 116 20 152/108 99 Room Air Lab Results: Results Past 24 Hours Test 09/07/16 06:20 Range/Units Sodium Level 141 136-145 mmol/L Potassium Level 4.3 3.5-5.1 mmol/L Chloride Level 107 98-107 mmol/L Carbon Dioxide Level 28 21-32 mmol/L Anion Gap 6.0 3-11 mmol/L Blood Urea Nitrogen 18 7-18 mg/dl Creatinine 1.30 0.60-1.40 mg/dl Est Creatinine Clear Calc Drug Dose 60.3 ml/min Estimated GFR () 66.4 Estimated GFR (Non- 57.3 BUN/Creatinine Ratio 13.9 10-20 Random Glucose 99 70-99 mg/dl Calcium Level 8.3 8.5-10.1 mg/dl Magnesium Level 2.5 1.8-2.4 mg/dl
[2016-09-07] MEDS: AMLODIPINE BESYLATE 5 MG TAB PO SCH (19:40)
[2016-09-07] MEDS: SODIUM CHLORIDE 0.9% 1000ML 1,000 ML IV SCH (23:56)
[2016-09-08] VITALS (8 sets, daily range): BP systolic 108–143; BP diastolic 74–95; PULSE 76–102; TEMP 36.4–36.9; O2SAT 96–98
[2016-09-08] MEDS: PANTOprazole SOD 40 MG TAB PO SCH (03:27)
[2016-09-08] MEDS: CLOPIDOGREL BISULFATE 75 MG TAB PO SCH (07:54)
[2016-09-08] MEDS: ASPIRIN 81 MG ECTAB PO SCH (07:54)
[2016-09-08] MEDS: METOPROLOL TARTRATE 25 MG TAB PO SCH ×2 (07:54→20:39)
[2016-09-08 08:05] LABS: BUN/CREATININE RATIO 13.4 (10-20); CALCIUM 8.4 mg/dl (8.5-10.1); CREATININE 1.2 mg/dl (0.60-1.40); MAGNESIUM 2.2 mg/dl (1.8-2.4); POTASSIUM 3.9 mmol/L (3.5-5.1)
[2016-09-08] MEDS ORDERED: NiCARDipine HCL INJ 2.5 MG/ML 10 ML AMP ONE (08:23)
[2016-09-08] MEDS ORDERED: HEPARIN SOD (PORCINE) 1000 UNIT/ML 10 ML VIAL ONE ×2 (08:23→09:21)
[2016-09-08] MEDS ORDERED: FENTANYL CITRATE INJ 50 MCG/1 ML 2 ML VIAL ONE ×2 (08:23→10:21)
[2016-09-08] MEDS ORDERED: NITROGLYCERIN/D5W 100MCG/ML 20ML SYR ONE (08:24)
[2016-09-08] MEDS ORDERED: MIDAZOLAM HCL 1 MG/ML 2ML VIAL ONE ×3 (08:24→10:22)
--- NOTE | 2016-09-08 09:10 | Progress Note ---
Internal Med Progress Note Date of Service: Sep 08, 2016. Provider Documentation: SUBJECTIVE: Patient is seen and examined at bedside. Patient had cardiac cath today. Doing well after the procedure. Denies chest pain, SOB, palpitations, dizziness. Offers no complaints. OBJECTIVE: Vital Signs-as noted below Physical Exam: Vitals signs as noted above General Appearance:Moderately built and nourished, no apparent distress Head: normocephalic, Atraumatic Eyes: normal inspection, EOMI, PERRLA Neck: supple, no JVD, Trachea midline Respiratory/Chest: Decreased breath sounds, CTA Cardiovascular: S1, S2, No murmur Abdomen/GI:Soft, Non tender, Bowel sounds present Extremities/Musculoskelatal:normal inspection, no edema Neurologic/Psych:AAOX3, grossly no focal neurological deficits Skin: normal color, warm Lab data as noted below. ASSESSMENT & PLAN: New Onset Angina: Presented with exertional chest pain since one month Positive family history of heart disease Troponin X 2: Negative EKG: No signs of ischemia TSH:wnl Appreciate cardiology input Continue aspirin, plavix, BB, NTG PRN Cardiac cath today: S/P RCA stent NSVT: Had 8-beats of NSVT Asymptomatic HTN continue amlodipine, BB Continue to monitor GERD Continue pantoprazole Mild asthma No signs of active exacerbation continue inhalers DVT PX: SCDs DISPOSITION: Continue to monitor in Tele Vital Signs: Date Time Temp Pulse Resp B/P Pulse Ox O2 Delivery O2 Flow Rate FiO2 09/08/16 10:58 36.5 91 20 136/90 98 Room Air 09/08/16 10:37 100 21 126/84 96 Room Air 09/08/16 10:22 100 21 128/88 98 Nasal Cannula 09/08/16 08:00 Room Air 09/08/16 04:00 Room Air 09/08/16 03:47 36.5 102 17 119/86 98 Room Air 09/07/16 23:59 Room Air 09/07/16 23:31 36.8 94 17 121/88 96 Room Air 09/07/16 20:51 36.4 110 16 110/77 97 Room Air 09/07/16 20:00 Room Air 09/07/16 19:27 36.4 110 16 110/77 97 Room Air 09/07/16 16:00 Room Air 09/07/16 15:24 36.3 105 16 127/74 98 Room Air 09/07/16 12:00 Room Air 09/07/16 11:53 36.6 97 16 128/90 98 Room Air Lab Results: Results Past 24 Hours Test 09/08/16 06:20 09/08/16 07:25 09/08/16 09:20 09/08/16 09:31 Range/Units Sodium Level 141 136-145 mmol/L Potassium Level 3.9 3.5-5.1 mmol/L Chloride Level 109 98-107 mmol/L Carbon Dioxide Level 23 21-32 mmol/L Anion Gap 9.0 3-11 mmol/L Blood Urea Nitrogen 16 7-18 mg/dl Creatinine 1.20 0.60-1.40 mg/dl Est Creatinine Clear Calc Drug Dose 65.3 ml/min Estimated GFR () 73.1 Estimated GFR (Non- 63.1 BUN/Creatinine Ratio 13.4 10-20 Random Glucose 103 70-99 mg/dl Calcium Level 8.4 8.5-10.1 mg/dl Magnesium Level 2.2 1.8-2.4 mg/dl [place]olin Activated Coagulation Time 204 234 94-140 SECONDS Test 09/08/16 09:42 Range/Units Kaolin Activated Coagulation Time 276 94-140 SECONDS
--- NOTE | 2016-09-08 09:15 | Procedure Note ---
Pre-Mod Sedation Assessment General Date of Moderate Sedation: Sep 08, 2016. Vital Signs: Vital Signs Past 12 Hours Date Time Temp Pulse Resp B/P Pulse Ox O2 Delivery O2 Flow Rate FiO2 09/08/16 04:00 Room Air 09/08/16 03:47 36.5 102 17 119/86 98 Room Air 09/07/16 23:59 Room Air 09/07/16 23:31 36.8 94 17 121/88 96 Room Air Pre-Sedation Airway Assessment Oral Cavity: WNL Short Thick Neck: No Hx of Sleep Apnea: No Smoking Status: Never Smoker ASA Classification: Class I Procedure Planning Contraindications-for Mod Sed: None Notes The planned sedation has been discussed with the patient and consent obtained. I have identified the patient, determined the appropriateness of sedation and have assessed the patient immediately prior to the procedure. All medicine(s) and interventions are by my order.
--- NOTE | 2016-09-08 09:17 | Procedure Note ---
Post-Mod Sedation Assessment General Date of Moderate Sedation Sep 08, 2016. Vital Signs: Vital Signs Past 12 Hours Date Time Temp Pulse Resp B/P Pulse Ox O2 Delivery O2 Flow Rate FiO2 09/08/16 04:00 Room Air 09/08/16 03:47 36.5 102 17 119/86 98 Room Air 09/07/16 23:59 Room Air 09/07/16 23:31 36.8 94 17 121/88 96 Room Air Review - Discharge Criteria Vital Signs Stable: Yes
[2016-09-08] MEDS ORDERED: EPTIFIBATIDE 0.75 MG/ML 75MG VIAL IV ONE (09:21)
[2016-09-08] MEDS ORDERED: EPTIFIBATIDE 2 MG/ML 10 ML VIAL IV ONE (09:21)
--- NOTE | 2016-09-08 09:23 | Cardiac Catheterization ---
Procedure Note Procedure Date Sep 08, 2016. Pre-Procedure Diagnosis Angina AUC Score 6 Post-Procedure Diagnosis Severe CAD Procedure(s) Performed Coronary Angiography, Left Heart Cath, LV Angiography Hide And Skin Colerer Dr. Monique C.O.D. Audit Clerk(s) None Estimated Blood Loss None Medication(s) Versed, Lidocaine 1% Summary of Findings Subtotal Proximal RCA Hemodynamics Rest Ao: 103/84 Final Ao: 133/76 LV: 127/10 Recommendations PCI without planned CABG Specimens None Radiation Exposure (mGy) 1074 Contrast (mls) 111 Fluids (cc crystalloids) 50 Procedural Complication(s) None Disposition Recovery Room / PACU ACC Data Cardiac Status Clinical evaluation leading to the procedure CAD Presntation: Unstable angina Anginal Classification: CCS III Heart Failure: No Cardiogenic Shock w/in 24Hrs: No Cardiac Arrest w/in 24Hrs: No Imaging studies past 6 months: No Stress studies past 6 months: No Coronary Anatomy Dominant: Right Left Main (% Stenosis): Normal LAD (% Stenosis): Proximal (50) D2 (% Stenosis): Ostial (50) Circumflex (% Stenosis): Normal RCA (% Stenosis): Proximal (95) Left Ventricular Angiography EF (%): 60 Mitral Regurgitation: None Diagnostic Status: Urgent Closure Device Percutaneous Entry Location: Radial
[2016-09-08] MEDS ORDERED: ALUMINUM/MAGNESIUM/SIMETH (MAALOX MAX) 30 ML UDC PO STA (10:43)
[2016-09-08] MEDS ORDERED: ATORVASTATIN 40 MG TAB PO ONE (10:45)
[2016-09-08] MEDS ORDERED: EPTIFIBATIDE BOLUS / DRIP IV ONE (10:45)
[2016-09-08] MEDS ORDERED: ALUMINUM/MAGNESIUM/SIMETH (MAALOX MAX) 30 ML UDC PO PRN (10:45)
[2016-09-08] MEDS ORDERED: ATROPINE SULFATE 0.1 MG/ML 5ML SYR IV PRN (10:45)
[2016-09-08] MEDS ORDERED: ONDANSETRON INJ 2 MG/ML 2 ML VIAL IV PRN (10:45)
[2016-09-08] MEDS ORDERED: NITROGLYCERIN 0.4 MG SL PER TAB CHARGE SL PRN (10:45)
--- NOTE | 2016-09-08 11:16 | Procedure Note ---
Post-Mod Sedation Assessment General Date of Moderate Sedation Sep 08, 2016. Vital Signs: Vital Signs Past 12 Hours Date Time Temp Pulse Resp B/P Pulse Ox O2 Delivery O2 Flow Rate FiO2 09/08/16 10:58 36.5 91 20 136/90 98 Room Air 09/08/16 10:37 100 21 126/84 96 Room Air 09/08/16 10:22 100 21 128/88 98 Nasal Cannula 3 09/08/16 08:00 Room Air 09/08/16 04:00 Room Air 09/08/16 03:47 36.5 102 17 119/86 98 Room Air 09/07/16 23:59 Room Air 09/07/16 23:31 36.8 94 17 121/88 96 Room Air Review - Discharge Criteria Vital Signs Stable: Yes Alert/Oriented/Conversant: Yes Returned to Baseline Mental St: Yes Nausea Absent/Minimal: Yes Pain/Discomfort/Absent/Minimal: Yes Normal/Baseline Respirations: Yes Active Bleeding?: No Pt Received D/C Instructions: N/A Prescriptions Given: None Specific Proced. D/C Criteria Distal Pulses Present (Cardiac: Yes Groin site assessed-Card Cath: N/A Voided Prior To Discharge: N/A Discharged Patients Adult Escort/Transportation: N/A
[2016-09-08] MEDS: SODIUM CHLORIDE 0.9% 1000ML 1,000 ML IV SCH ×4 (11:22→20:40)
[2016-09-08 11:29] LABS: BASO % 0.5 %; BASO ABS # 0.03 K/uL (0-0.2); EOS % 6.5 %; HEMATOCRIT 44.4 % (42-52); IG% 0.5 %; LYMPH % 24.9 %; LYMPH ABS # 1.42 K/uL (1.2-3.4); MEAN CELL VOLUME 91.2 fL (80-100); MEAN CORPUSCULAR HEMOGLOBIN 31.2 pg (25-34); MEAN PLATELET VOLUME 9.6 fL (7.4-10.4); NEUT % 54.6 %; PLATELET COUNT 235 K/uL (130-400); RED BLOOD COUNT 4.87 M/uL (4.7-6.1); WHITE BLOOD COUNT 5.71 K/uL (4.8-10.8)
[2016-09-08] MEDS: MOMETASONE FUROATE 14 PUFF/1 INHALER INH SCH ×2 (11:45→20:37)
--- NOTE | 2016-09-08 11:49 | CARDIAC CATH REPORT ---
PROCEDURES: 1. Left heart catheterization. 2. Coronary angiography. 3. Left ventriculography. HISTORY: This is a 66-year-old male patient who presented with classic typical exertional angina. PROCEDURE SUMMARY: The patient was brought to the cardiac catheterization lab. After informed consent was obtained, the patient was prepped and draped in the usual manner for a right transradial approach. A Barbeau maneuver was performed. Using a retrograde Seldinger technique preformed 5-Maltese diagnostic catheters were utilized for the coronary angiograms. A 5-Maltese pigtail catheter was utilized for the left ventriculogram. Following the procedure, the patient underwent coronary intervention and then was returned to his room in stable condition. CORONARY ANGIOGRAPHY: Selective injections of the left coronary artery revealed the left main trunk to be widely patent. The LAD has a 50% stenosis proximally. The second diagonal branch has a 50% ostial stenosis. The remainder of the LAD is widely patent. The left circumflex artery consists principally of a large lateral marginal branch. Left circumflex artery is widely patent. Right coronary artery is dominant. Right coronary artery in its proximal segment has an ulcerated 95% stenosis. LEFT VENTRICULOGRAM: The left ventricle is of normal size with normal systolic function. The mitral valve is competent. SUMMARY: The patient has a subtotal ulcerated plaque of the proximal right coronary artery. The left coronary system, the LAD has moderate nonobstructive disease. The patient has normal LV function. The patient will be evaluated by interventional cardiology for stent placement in the right coronary artery.
--- NOTE | 2016-09-08 11:50 | Cardiac Catheterization ---
Procedure Note Procedure Date Sep 08, 2016. Pre-Procedure Diagnosis Acute Coronary Syndrome AUC Score 9 for rescularization Post-Procedure Diagnosis Successful PCI Procedure(s) Performed Coronary Angiography, PTCA, Bare Metal Stent Freelance Makeup Artist Dr. Skaggs Health And Safety Advisor(s) BASIA Workman Estimated Blood Loss 30 ml for PCI procedure Medication(s) Fentanyl, Heparin, Integrilin, Metoprolol, Nicardipine (Intra-arterial and intracoronary), Nitroglycerin (Intra arterial), Versed, Lidocaine 1% Summary of Findings Clinical indications: New onset exertional angina. Severe proximal RCA stenosis on diagnostic cardiac catheterization performed by Dr. Jarod Monique. Catheterization site: 6 Afghan glide sheath right radial artery. This had been inserted at time of diagnostic catheterization. Interventional equipment: 6 Afghan JR4, RBU 4.0, and ALR1-2 guide catheters. The JR4 guide catheter was 1st used. Balloon angioplasty was performed using this catheter. Was then attempted to deliver the stent to the proximal to mid RCA. There was inadequate backup. Guide wire position was lost. It was then attempted to recannulate the right coronary artery with the RBU guide. These attempts were unsuccessful. The RCA was successfully cannulated with the ALR1- 2 guide catheter. This guide catheter provided excellent backup. The RCA was rewired. The stent was then advanced to the proximal to mid RCA uneventfully. [place] guidewire. Medtronic Sprinter 3.0 x 12 millimeter balloon dilatation catheter, Medtronic Integrity 4 X 22 millimeter bare metal stent,Medtronic Euphora 4.5 X 12 mm NC balloon dilatation catheter. Interventional protocol: 1 balloon inflation was performed with the sprinter balloon to the proximal RCA. Pressure of 8 atmospheres for duration of 15 seconds. The stent was deployed at a pressure of 15 atmospheres for 35 seconds. Two balloon inflations were performed to the stent with the noncompliant balloon to maximum pressure of 15 atmospheres and maximum duration of 25 seconds. Follow-up angiography was performed with from orthogonal projections with the guidewire in place and then with the guidewire withdrawn. Complications: The patient was hemodynamically stable throughout the procedure. No arrhythmias. No evidence of any coronary complications such as dissection, thrombus, perforation, or distal embolic event. patient did complain of chest pressure radiating to his jaw following stent deployment. Multiple angiograms were performed and there is no evidence of any coronary complication. An electrocardiogram was performed following completion of the procedure and revealed normal ST segments and T-waves. No ECG evidence of ischemia or injury. His chest discomfort improved when he was able to sit up. Plan: The patient was given intravenous heparin and Integrilin prior to intervention. Therapeutic activated clotting times were documented. He was already on aspirin and clopidogrel prior to the procedure. He will remain on intravenous Integrilin for least 18 hours. He will remain on aspirin, clopidogrel, and metoprolol therapy. Atorvastatin and lisinopril will be started. He will have continued cardiology follow-up with Dr. Monique. Hemodynamics Rest Ao: 103/84/93 mm Hg Final Ao: 147/93/120 mm Hg LV: NA Recommendations Medical therapy and/or Counseling, PCI without planned CABG Specimens None Radiation Exposure (mGy) Total of 3,768 for both diagnostic and PCI procedures Contrast (mls) Total of 311 ml Visipaque for both procedures Fluids (cc crystalloids) Total of 185 ml for both procedures Drains None Anesthesia IV versed,fentanyl. Lidocaine 1 % for local. Procedural Complication(s) None Disposition PCU ACC Data Cardiac Status Clinical evaluation leading to the procedure CAD Presntation: Unstable angina Anginal Classification: CCS II Heart Failure: No Cardiogenic Shock w/in 24Hrs: No Cardiac Arrest w/in 24Hrs: No Imaging studies past 6 months: No Stress studies past 6 months: No Standard Exercise Stress Test: No Stress Echocardiogram: No Stress Testing w/SPECT MPI: No Cardiac CTA: No Coronary Anatomy Dominant: Right (See Dr. Monique's diagnostic report.) Left Ventricular Angiography EF (%): NA Diagnostic Physician's Name: Jarod Monique, DO Status: Elective Closure Device Percutaneous Entry Location: Radial Closure Device: Radial Band Recommendations: Medical therapy and/or Counseling, PCI without planned CABG PCI Indication: Unstable Angina Lesion Segment Name: Proximal RCA Culprit Artery: Yes Stenosis Prior to Rx (%): 95 Chronic Total Occlusion: No IVUS: No FFR: No Pre-Procedure PAOLA Flow: 3 Previously Treated Lesion: No Lesion Complexity: Non-High/Non-C Lesion Length (mm): 18 Thrombus Present: Yes Bifurcation Lesion: No Guidewire Across Lesion: Yes Guidewire: Stenosis Post-Procedure (%): 0-10 Post-Procedure PAOLA Flow: 3 Device(s) Deployed: Yes Type of Device(s): Medtronic 4 X 22 mm BMS. Post dilated with 4.5 mm non compliant balloon. Intraprocedure Events Significant Dissection: No Perforation: No
[2016-09-08 11:56] LABS: COMPLETE YES; MEAN CORPUSCULAR HGB CONC 34.2 g/dl (32-36)
[2016-09-08] MEDS: EPTIFIBATIDE INJ 75 MG PREMIXED IV SCH ×2 (11:56→16:11)
--- NOTE | 2016-09-08 12:45 | PROGRESS NOTE ---
DATE: 09/08/2016 FOLLOWUP VISIT SUBJECTIVE: The patient underwent a cardiac catheterization this morning. I met with he and his after the procedure. He received a stent within his right coronary artery. The patient is stable postoperatively. All questions were answered. I anticipate that if all goes well, patient will be discharged in the morning.
[2016-09-08 13:31] LABS: HEMATOCRIT 44.8 % (42-52); MEAN CELL VOLUME 92.4 fL (80-100); MEAN CORPUSCULAR HEMOGLOBIN 31.8 pg (25-34); MEAN CORPUSCULAR HGB CONC 34.4 g/dl (32-36); MEAN PLATELET VOLUME 9.2 fL (7.4-10.4); PLATELET COUNT 206 K/uL (130-400); RED BLOOD COUNT 4.85 M/uL (4.7-6.1); WHITE BLOOD COUNT 5.68 K/uL (4.8-10.8)
[2016-09-08] MEDS: AMLODIPINE BESYLATE 5 MG TAB PO SCH (20:40)
[2016-09-09 00:30] VITALS: BP 147/97; PULSE 102; TEMP 36.5; O2SAT 98
[2016-09-09] MEDS: EPTIFIBATIDE INJ 75 MG PREMIXED IV SCH (00:58)
[2016-09-09] MEDS: SODIUM CHLORIDE 0.9% 1000ML 1,000 ML IV SCH (02:45)
[2016-09-09 04:10] VITALS: BP 138/90; PULSE 106; TEMP 36.8; O2SAT 97
[2016-09-09] MEDS ORDERED: Integrelin infusion --> STOP ORDER ONE (05:00)
[2016-09-09] MEDS: PANTOprazole SOD 40 MG TAB PO SCH (06:27)
[2016-09-09 07:42] LABS: BASO % 0.5 %; BASO ABS # 0.03 K/uL (0-0.2); COMPLETE YES; EOS % 2.5 %; HEMATOCRIT 44.8 % (42-52); IG% 0.2 %; LYMPH % 21.4 %; LYMPH ABS # 1.19 K/uL (1.2-3.4); MEAN CELL VOLUME 90.5 fL (80-100); MEAN CORPUSCULAR HEMOGLOBIN 30.9 pg (25-34); MEAN CORPUSCULAR HGB CONC 34.2 g/dl (32-36); MEAN PLATELET VOLUME 9.2 fL (7.4-10.4); MONO % 11.7 %; NEUT % 63.7 %; PLATELET COUNT 224 K/uL (130-400); RED BLOOD COUNT 4.95 M/uL (4.7-6.1); WHITE BLOOD COUNT 5.56 K/uL (4.8-10.8)
[2016-09-09 07:52] VITALS: BP 143/85; PULSE 112; TEMP 36.6; O2SAT 97
[2016-09-09 08:14] LABS: BUN/CREATININE RATIO 11.6 (10-20); CALCIUM 8.5 mg/dl (8.5-10.1); CREATININE 1.1 mg/dl (0.60-1.40); MAGNESIUM 2.2 mg/dl (1.8-2.4); POTASSIUM 3.9 mmol/L (3.5-5.1)
[2016-09-09] MEDS ORDERED: ASPIRIN 81 MG ECTAB PO SCH (09:00)
[2016-09-09] MEDS: MOMETASONE FUROATE 14 PUFF/1 INHALER INH SCH (09:00)
[2016-09-09] MEDS ORDERED: ATORVASTATIN 40 MG TAB PO SCH (09:00)
[2016-09-09] MEDS ORDERED: LISINOPRIL 5 MG TAB PO SCH (09:00)
--- NOTE | 2016-09-09 09:01 | Progress Note ---
Internal Med Progress Note Date of Service: Sep 09, 2016. Provider Documentation: SUBJECTIVE: Patient is seen and examined at bedside. States neck pressure like sensation resolved. Feels well. Denies any chest pain, SOB, palpitations, dizziness. Offers no complaints. OBJECTIVE: Vital Signs-as noted below Physical Exam: Vitals signs as noted above General Appearance:Moderately built and nourished, no apparent distress Head: normocephalic, Atraumatic Eyes: normal inspection, EOMI, PERRLA Neck: supple, no JVD, Trachea midline Respiratory/Chest: Normal breath sounds, CTA Cardiovascular: S1, S2, Tachycardic, No murmur Abdomen/GI:Soft, Non tender, Bowel sounds present Extremities/Musculoskelatal:normal inspection, no edema Neurologic/Psych:AAOX3, grossly no focal neurological deficits Skin: normal color, warm Lab data as noted below. ASSESSMENT & PLAN: NSTEMI: S/P RCA stent Presented with exertional chest pain since one month Positive family history of heart disease Troponin X 2: Negative EKG: No signs of ischemia TSH:wnl Appreciate cardiology input Continue aspirin, Plavix, Lipitor, BB, NTG PRN Integrilin discontinued this morning NSVT: Had 8-beats of NSVT Asymptomatic Currently has sinus tachycardia with PVCs and PACs HTN continue amlodipine, BB Continue to monitor GERD Continue pantoprazole Mild asthma No signs of active exacerbation continue inhalers DVT PX: SCDs DISPOSITION: Continue to monitor in Tele Vital Signs: Date Time Temp Pulse Resp B/P Pulse Ox O2 Delivery O2 Flow Rate FiO2 09/09/16 08:00 Room Air 09/09/16 08:00 Room Air 09/09/16 07:52 36.6 112 19 143/85 97 Room Air 09/09/16 04:10 36.8 106 17 138/90 97 Room Air 09/09/16 04:00 Room Air 09/09/16 00:30 36.5 102 17 147/97 98 Room Air 09/09/16 00:00 Room Air 09/08/16 20:00 Room Air 09/08/16 19:25 36.9 76 18 128/74 97 09/08/16 16:00 Room Air 09/08/16 15:50 36.7 102 18 108/81 96 09/08/16 14:16 36.6 102 20 143/92 98 Room Air 09/08/16 12:17 36.6 102 20 143/92 98 Room Air 09/08/16 12:00 Room Air 09/08/16 11:40 36.5 101 20 134/90 98 Room Air 09/08/16 11:20 36.4 101 20 136/95 97 Room Air 09/08/16 10:58 36.5 91 20 136/90 98 Room Air 09/08/16 10:37 100 21 126/84 96 Room Air 09/08/16 10:22 100 21 128/88 98 Nasal Cannula 3 Lab Results: Results Past 24 Hours Test 09/08/16 13:17 09/09/16 07:24 Range/Units White Blood Count 5.68 5.56 4.8-10.8 K/uL Red Blood Count 4.85 4.95 4.7-6.1 M/uL Hemoglobin 15.4 15.3 14.0-18.0 g/dL Hematocrit 44.8 44.8 42-52 % Mean Corpuscular Volume 92.4 90.5 80-100 fL Mean Corpuscular Hemoglobin 31.8 30.9 25-34 pg Mean Corpuscular Hemoglobin Concent 34.4 34.2 32-36 g/dl RDW Standard Deviation 42.3 41.1 36.4-46.3 fL RDW Coefficient of Variation 12.5 12.5 11.5-14.5 % Platelet Count 206 224 130-400 K/uL Mean Platelet Volume 9.2 9.2 7.4-10.4 fL Neutrophils (%) (Auto) 63.7 % Lymphocytes (%) (Auto) 21.4 % Monocytes (%) (Auto) 11.7 % Eosinophils (%) (Auto) 2.5 % Basophils (%) (Auto) 0.5 % Neutrophils # (Auto) 3.54 1.4-6.5 K/uL Lymphocytes # (Auto) 1.19 1.2-3.4 K/uL Monocytes # (Auto) 0.65 0.11-0.59 K/uL Eosinophils # (Auto) 0.14 0-0.5 K/uL Basophils # (Auto) 0.03 0-0.2 K/uL Immature Granulocyte % (Auto) 0.2 % Immature Granulocyte # (Auto) 0.01 0.00-0.02 K/uL Sodium Level 140 136-145 mmol/L Potassium Level 3.9 3.5-5.1 mmol/L Chloride Level 107 98-107 mmol/L Carbon Dioxide Level 27 21-32 mmol/L Anion Gap 6.0 3-11 mmol/L Blood Urea Nitrogen 13 7-18 mg/dl Creatinine 1.10 0.60-1.40 mg/dl Est Creatinine Clear Calc Drug Dose 71.3 ml/min Estimated GFR () 81.2 Estimated GFR (Non- 70.1 BUN/Creatinine Ratio 11.6 10-20 Random Glucose 97 70-99 mg/dl Calcium Level 8.5 8.5-10.1 mg/dl Magnesium Level 2.2 1.8-2.4 mg/dl
[2016-09-09] MEDS: ASPIRIN 81 MG ECTAB PO SCH (09:41)
[2016-09-09] MEDS: CLOPIDOGREL BISULFATE 75 MG TAB PO SCH (09:42)
[2016-09-09] MEDS: METOPROLOL TARTRATE 25 MG TAB PO SCH (09:42)
[2016-09-09] MEDS ORDERED: METOPROLOL TARTRATE 25 MG TAB PO STA (10:30)
--- NOTE | 2016-09-09 13:11 | CARDIOLOGY CONSULTATION ---
DATE OF CONSULTATION: 09/09/2016 FOLLOWUP VISIT SUBJECTIVE: The patient is a 66-year-old male patient who presented with classic new onset angina. Yesterday, he underwent a cardiac catheterization that revealed an ulcerated subtotal proximal right coronary artery. Dr. Skaggs put in a bare-metal stent and the stent was expanded to 4.5 cm in diameter. The patient had an uneventful night, but on the telemetry this morning he had an asymptomatic run of atrial tachycardia around 8:00 a.m. this morning with a heart rate of 150 beats per minute. Reviewing his telemetry since yesterday, he has had tachycardia with heart rates in the low 100 to high 90s range. It is hard to determine the morphology from the telemetry. This could be a sinus tachycardia, but the tachycardia occurred at 8:00 a.m. and lasted for several minutes, was PAT. It was completely asymptomatic and he has no complaints this morning. OBJECTIVE: VITAL SIGNS: Blood pressure is 145/85, pulse is regular at 105 beats per minute. He is afebrile. HEENT: He is normocephalic. Pupils are equal and reactive to light. Extraocular muscles are intact bilaterally. NECK: The neck veins are flat. Carotids have good upstrokes bilaterally without bruits. Thyroid is nonpalpable. RESPIRATORY: Breath sounds are equal bilaterally and clear to auscultation. CARDIOVASCULAR: Heart has a regular rhythm. There are no cardiac rubs or murmurs. ABDOMEN: Soft, nontender, without organomegaly. EXTREMITIES: The catheterization site in the right wrist is healing appropriately. NEUROLOGIC: Grossly intact. SKIN: Warm to touch. LYMPH NODES: Negative to palpation. LABORATORY DATA: Hemoglobin is 15.3. Potassium is 3.9, creatinine is 1.1. TSH level on admission is 2.36. IMPRESSION: 1. Coronary artery disease with a presentation of new onset angina. 2. Bare-metal stent placed in the proximal right coronary artery. 3. Resting tachycardia. RECOMMENDATIONS: The patient is on metoprolol and I will give him an extra dose now and increase his routine. I will obtain an EKG stat now and see if he is in a sinus mechanism. We may just have to increase his metoprolol and that may be enough. The patient may be able to return home later this afternoon.
[2016-09-09] MEDS ORDERED: PLV75 PO (13:41)
[2016-09-09] MEDS ORDERED: ASPEC81 PO (13:41)
[2016-09-09] MEDS ORDERED: NTRSLP4 SL (13:41)
[2016-09-09] MEDS ORDERED: LPT40 PO (13:41)
[2016-09-09] MEDS ORDERED: PRT40 PO (13:41)
[2016-09-09] MEDS ORDERED: LSN5 PO (13:41)
[2016-09-09] MEDS ORDERED: METO50TA17 PO (13:41)
--- NOTE | 2016-09-09 13:46 | Discharge Instructions ---
Discharge Instructions Date of Service Sep 09, 2016. Admission Reason for Admission: Exertional Angina Discharge Discharge Diagnosis / Problem: NSTEMI,S/P Cardiac Cath and RCA Stent Discharge Goals Goal(s): Prevent Disease Progression Activity Recommendations Activity Limitations: per Instructions/Follow-up section (Take it easy until being evaluated by the Control Equipment Electrician) . Instructions / Follow-Up Instructions / Follow-Up DR Salazar on 09/11/16 at 2:10PM .Keep appointment with the Cardiology Current Hospital Diet Patient's current hospital diet: AHA Diet (Heart Healthy) Discharge Diet Recommended Diet: AHA Diet (Heart Healthy), Low Sodium Diet (2gm Na) Pending Studies Studies pending at discharge: no Medical Emergencies . Who to Call and When: Medical Emergencies: If at any time you feel your situation is an emergency, please call 911 immediately. . Non-Emergent Contact Non-Emergency issues call your: Primary Care Provider . Past History Medical & Surgical History: (1) NSTEMI (non-ST elevated myocardial infarction) (2) CAD (coronary artery disease), [place] coronary artery (3) Exertional angina (4) Hypertension . "Provider Documentation" section prepared by Teri Pike. VTE Core Measure Inpt VTE Proph given/why not?: Unfractionated heparin SQ
--- NOTE | 2016-09-09 17:02 | Discharge Summary ---
Discharge Summary Date of Service Sep 09, 2016. Discharge Summary Admission Date: Sep 05, 2016 at 19:58 Discharge Date: Sep 09, 2016 Discharge Disposition: Home Principal Diagnosis: NSTEMI,S/P Cardiac Cath and RCA Stent Secondary Diagnoses/Problems: Please see H&P Procedures: Cardiac cath with RCA stenting Consultations: Cardiology Medication Reconciliation New Medications: Aspirin (Aspirin EC Low Dose) 81 Mg Ectab 81 MG PO QAM for 30 Days, #30 Atorvastatin (Atorvastatin Calcium) 40 Mg Tab 80 MG PO QAM for 10 Days, #20 TAB Clopidogrel Bisulfate (Clopidogrel) 75 Mg Tab 75 MG PO QAM for 10 Days, #10 TAB Lisinopril (Lisinopril) 5 Mg Tab 5 MG PO QAM for 10 Days, #10 TAB Metoprolol Tartrate (Metoprolol Tartrate) 50 Mg Tab 50 MG PO BID for 10 Days, #20 TAB Nitroglycerin (Nitrostat) 0.4 Mg/1 Tab Subl 0.4 MG SL UD PRN for Chest Pain for 30 Days, #25 Pantoprazole (Pantoprazole Sodium) 40 Mg Tab 40 MG PO DAILYBB for 10 Days, #10 TAB Continued Medications: Albuterol (Ventolin Hfa) 60 Puffs/5400 Mcg Aers 2 PUFF INH Q6 PRN for SOB/Wheezing Amlodipine (Norvasc) 10 Mg Tab 10 MG PO QPM, TAB Mometasone Furoate (Inhalation (Asmanex Hfa) 100 Mcg/Act Aer 1 PUFF PO BID Tadalafil (Cialis) 10 Mg Tab 20 MG PO UD, TAB Admission Information HPI (per Admitting provider): Patient is a 66 y/o male with a h/o GERD who presents for evaluation of exertional chest pain. Patient notes upper chest/throat tightness that radiates to the jaw with exertion for the past month. He denies any pain/tightness at rest. Patient states that he has never experienced anything like this before. Patient notes a longstanding h/o heartburn since childhood, but these current symptoms feel distinctly different. He is occasionally compliant with his amlodipine. He is a nonsmoker. His FMHx is significant for father and brother with heart disease in their 50's and mother with heart disease in her 70's. In the ED, troponin was negative and EKG did not show any ischemic changes. Past Medical/Surgical History Medical Problems: (1) Asthma Status: Chronic Family History FH: heart disease Social History Smoking Status: Unknown if Ever Smoked Drug Use: none Marital Status: in relationship Occupational Status: employed Allergies Coded Allergies: Tetanus Toxoid (Unverified Allergy, Unknown, SWELLING TO EXTREMITY, ) Home Medications Scheduled Amlodipine (Norvasc), 10 MG PO QPM Mometasone Furoate (Inhalation (Asmanex Hfa), 1 PUFF PO BID Tadalafil (Cialis), 20 MG PO UD Scheduled PRN Albuterol (Ventolin Hfa), 2 PUFF INH Q6 PRN for SOB/Wheezing Review of Systems Constitutional- denies fevers or chills Eyes- denies sudden vision changes ENT- denies sore throat or congestion Pulmonary- denies SOB or cough Cardiac- see above GI- denies abdominal pain, nausea, vomiting, diarrhea - denies dysuria or hematuria Musculoskeletal- denies joint pain or swelling Dermatologic- denies rash or bruise Neuro- denies weakness, numbness or tingling Psych- denies depression or anxiety . Physical Exam Vital Signs Date Time Temp Pulse Resp B/P Pulse Ox O2 Delivery O2 Flow Rate FiO2 09/05/16 21:11 36.6 121 18 177/116 92 Room Air 09/05/16 20:38 113 20 148/107 95 09/05/16 19:31 110 09/05/16 19:14 113 20 174/109 98 Room Air 09/05/16 19:09 98 Room Air 09/05/16 18:11 97 Room Air 09/05/16 18:11 36.6 112 20 173/104 98 Room Air General- awake; alert; NAD Eyes- EOMI; no scleral icterus Neck- no stridor; trachea midline Lungs- CTA bilaterally; no wheezes/crackles Heart- RRR; no m/r/g Abdomen- soft; NTND; nBS Back- no gross abnormalities Extremities- no c/c/e; no deformity Neuro- no focal deficits Skin- no appreciable rash or bruise . Diagnostics Laboratory Results Results Past 24 Hours Test 09/05/16 18:50 09/05/16 19:00 09/05/16 19:04 09/05/16 21:18 Range/Units Creatine Kinase MB Ratio 1.0 0-3.0 White Blood Count 7.22 4.8-10.8 K/uL Red Blood Count 5.21 4.7-6.1 M/uL Hemoglobin 16.7 14.0-18.0 g/dL Hematocrit 48.0 42-52 % Mean Corpuscular Volume 92.1 80-100 fL Mean Corpuscular Hemoglobin 32.1 25-34 pg Mean Corpuscular Hemoglobin Concent 34.8 32-36 g/dl Platelet Count 239 130-400 K/uL Mean Platelet Volume 9.1 7.4-10.4 fL Neutrophils (%) (Auto) 58.0 % Lymphocytes (%) (Auto) 26.7 % Monocytes (%) (Auto) 10.0 % Eosinophils (%) (Auto) 4.3 % Basophils (%) (Auto) 0.6 % Neutrophils # (Auto) 4.19 1.4-6.5 K/uL Lymphocytes # (Auto) 1.93 1.2-3.4 K/uL Monocytes # (Auto) 0.72 0.11-0.59 K/uL Eosinophils # (Auto) 0.31 0-0.5 K/uL Basophils # (Auto) 0.04 0-0.2 K/uL RDW Standard Deviation 42.1 36.4-46.3 fL RDW Coefficient of Variation 12.5 11.5-14.5 % Immature Granulocyte % (Auto) 0.4 % Immature Granulocyte # (Auto) 0.03 0.00-0.02 K/uL Prothrombin Time 10.2 9.0-12.0 SECONDS Prothromb Time International Ratio 1.0 0.9-1.1 Activated Partial Thromboplast Time 27.3 21.0-31.0 SECONDS Partial Thromboplastin Ratio 1.1 Sodium Level 139 136-145 mmol/L Potassium Level 3.9 3.5-5.1 mmol/L Chloride Level 103 98-107 mmol/L Carbon Dioxide Level 27 21-32 mmol/L Anion Gap 9.0 3-11 mmol/L Blood Urea Nitrogen 20 7-18 mg/dl Creatinine 1.20 0.60-1.40 mg/dl Est Creatinine Clear Calc Drug Dose 70.6 ml/min Estimated GFR () 73.1 Estimated GFR (Non- 63.1 BUN/Creatinine Ratio 16.4 10-20 Random Glucose 93 70-99 mg/dl Calcium Level 9.8 8.5-10.1 mg/dl Total Bilirubin 0.3 0.2-1 mg/dl Direct Bilirubin < 0.1 0-0.2 mg/dl Aspartate Amino Transf (AST/SGOT) 18 15-37 U/L Alanine Aminotransferase (ALT/SGPT) 26 12-78 U/L Alkaline Phosphatase 82 45-117 U/L Total Creatine Kinase 199 39-308 U/L Creatine Kinase MB 2.0 0.5-3.6 ng/ml Total Protein 8.1 6.4-8.2 gm/dl Albumin 4.3 3.4-5.0 gm/dl Lipase 134 73-393 U/L Bedside Troponin I 0.000 0-0.045 ng/ml Diagnostic Radiology CXR Negative chest. EKG No acute ischemic changes Impression Assessment and Plan Patient is a 66 y/o male with a h/o HTN and significant FMHx who presents for evaluation of exertional chest tightness x1 month. Exertional angina - history very concerning for cardiac etiology - trend cardiac enzymes - Cardiology consult: determine stress vs cath - aspirin HTN - continue amlodipine - metoprolol PRN GERD - start pantoprazole Mild asthma - not active - continue inhalers DVT prophylaxis with SCDs Advanced Directives Existing Living Will: No Existing Power of Acquisition Professional: No VTE Prophylaxis VTE Risk Assessment Done? Y/N: Yes Risk Level: Low <Electronically signed by Angeles Galicia MD> Physical Exam (per Admitting): General- awake; alert; NAD Eyes- EOMI; no scleral icterus Neck- no stridor; trachea midline Lungs- CTA bilaterally; no wheezes/crackles Heart- RRR; no m/r/g Abdomen- soft; NTND; nBS Back- no gross abnormalities Extremities- no c/c/e; no deformity Neuro- no focal deficits Skin- no appreciable rash or bruise . Hospital Course NSTEMI: S/P RCA stent Presented with exertional chest pain since one month Positive family history of heart disease Troponin X 2: Negative EKG: No signs of ischemia TSH:wnl Appreciate cardiology input Continue aspirin, Plavix, Lipitor, BB, NTG PRN Integrilin discontinued this morning NSVT: Had 8-beats of NSVT Asymptomatic Currently has sinus tachycardia with PVCs and PACs HTN continue amlodipine, BB Continue to monitor GERD Continue pantoprazole Mild asthma No signs of active exacerbation continue inhalers DVT PX: SCDs DISPOSITION: Continue to monitor in Tele Total time spent on discharge = 35 minutes This includes examination of the patient, discharge planning, medication reconciliation, and communication with other providers. Discharge Instructions Date of Service Sep 09, 2016. Admission Reason for Admission: Exertional Angina Discharge Discharge Diagnosis / Problem: NSTEMI,S/P Cardiac Cath and RCA Stent Discharge Goals Goal(s): Prevent Disease Progression Activity Recommendations Activity Limitations: per Instructions/Follow-up section (Take it easy until being evaluated by the Procurement Forester) . Instructions / Follow-Up Instructions / Follow-Up DR Salazar on 09/11/16 at 2:10PM .Keep appointment with the Cardiology Current Hospital Diet Patient's current hospital diet: AHA Diet (Heart Healthy) Discharge Diet Recommended Diet: AHA Diet (Heart Healthy), Low Sodium Diet (2gm Na) Pending Studies Studies pending at discharge: no Medical Emergencies . Who to Call and When: Medical Emergencies: If at any time you feel your situation is an emergency, please call 911 immediately. . Non-Emergent Contact Non-Emergency issues call your: Primary Care Provider . Past History Medical & Surgical History: (1) NSTEMI (non-ST elevated myocardial infarction) (2) CAD (coronary artery disease), [place] coronary artery (3) Exertional angina (4) Hypertension . "Provider Documentation" section prepared by Teri Pike. VTE Core Measure Inpt VTE Proph given/why not?: Unfractionated heparin SQ <Electronically signed by Teri Pike M.D.> Additional Copies To Dustin Salazar M.D.
[2016-09-09] MEDS ORDERED: METOPROLOL TARTRATE 50 MG TAB PO SCH (21:00)
== END 2016-09-09 14:54 | disposition home or self-care (01) | DRG 249 ==
LOC: ENRESERVTM → ENRESERVDT → C.EDB 18:08 → C.2T 19:58
PROVIDERS: ADMIT Internal Medicine; ATTEND Internal Medicine
PROC: B2111ZZ Fluoroscopy of Multiple Coronary Arteries using Low Osmolar Contrast (ICD-10-PCS; principal; 2016-09-08 08:27)
PROC: 4A023N7 Measurement of Cardiac Sampling and Pressure, Left Heart, Percutaneous Approach (ICD-10-PCS; principal; 2016-09-08 08:27)
PROC: 02703DZ Dilation of Coronary Artery, One Artery with Intraluminal Device, Percutaneous Approach (ICD-10-PCS; principal; 2016-09-08 08:27)
PROC: B2151ZZ Fluoroscopy of Left Heart using Low Osmolar Contrast (ICD-10-PCS; principal; 2016-09-08 08:27)
DX: I21.4 Non-ST elevation (NSTEMI) myocardial infarction (principal); I10 Essential (primary) hypertension; K21.9 Gastro-esophageal reflux disease without esophagitis; J45.909 Unspecified asthma, uncomplicated; I25.10 Atherosclerotic heart disease of native coronary artery without angina pectoris

== ENCOUNTER 2021-10-01 14:25 | Inpatient (IN) ==
[2021-10-01] MEDS ORDERED: SODIUM CHLORIDE 0.9% 1000ML 1,000 ML IV ONE ×2 (14:52→15:34)
--- NOTE | 2021-10-01 15:09 | Emergency Department Note ---
Impression & Plan Abdominal pain, SVT (supraventricular tachycardia), Acute urinary retention ED Provider Note NAME: DESHAWN RAMOS AGE: 71 SEX: M : 1950 ARRIVES VIA: Walk-In INFORMANT: Patient ED PROVIDER(S): Warren Gary DO CHIEF COMPLAINT: abdominal pain HPI: Patient is a 71-year-old male postop from hernia surgery who presents to the ER as he cannot urinate. He was able to urinate just a small amount around 9 AM this morning. His hernia surgery was performed yesterday by Dr. Blunt. He was discharged in the mid afternoon. He notes he has severe pain 10 out of 10 in his lower pelvis and feels like he has to urinate burning in his penis. He denies any headache or change in vision. No chest pain or shortness of breath. No nausea or vomiting. No other exacerbating or remitting factors. He denies feeling his heart race. ROS: See above HPI for pertinent positives & negatives. A total of 10 systems reviewed and were otherwise negative. PAST MEDICAL HISTORY:See Below PAST SURGICAL HISTORY:See Below FAMILY HISTORY:See Below SOCIAL HISTORY:See Below HOME MEDICATIONS:See Below ALLERGIES:See Below VITALS:See Below PHYSICAL EXAMINATION: GENERAL: Sitting up in bed, alert, well appearing, well nourished, no distress, non-toxic EYE EXAM: normal conjunctiva. PERRL and EOM's grossly intact. OROPHARYNX: no exudate, no erythema, lips, buccal mucosa, and tongue normal and mucous membranes are moist NECK: supple, no nuchal rigidity, no adenopathy, non-tender LUNGS: Clear to auscultation. Normal chest wall mechanics HEART: Tachycardic, S1 normal and S2 normal ABDOMEN: abdomen Tender in the suprapubic region, Port sites are clean dry and intact.normo-active bowel sounds, no masses, no rebound or guarding. UPPER EXTREMITIES: upper extremities are grossly normal. LOWER EXTREMITIES: No pitting edema. NEURO EXAM: Normal sensorium, cranial nerves II-XII grossly intact, normal speech, no gross weakness of arms, no gross weakness of legs. MEDICAL DECISION MAKING: Patient is a 71-year-old male who presents the ER for abdominal pain and inability urinate. Bedside ultrasound performed by myself shows a large distended bladder measuring close to 12 cm. James was inserted and he had complete resolution of his abdominal pain had closed with 1000 mL removed. When he was brought into the room placed on the monitor showed that he was in a tachycardia with a heart rate in 150s. EKG was obtained which appeared to suggest SVT. After the James placement he broke on his own into a sinus rhythm. He was resting comfortably and then went back into a SVT. He was given 6 of adenosine followed by 12 adenosine and both times broke but then reentered SVT. CT angio of the chest was performed and IV blood work was obtained due to recent surgery. Labs show no significant leukocytosis or anemia. BMP unremarkable. LFTs bilirubin and troponin were negative. Lipase was clean. UA was clean. Covid was negative.This x-ray was unremarkable. CT of the chest was clean. After CT patient broke into sinus rhythm again. He was given a small dose of Lopressor. Patient was discussed with Kaci from [facility] service for further evaluation. Triage Nursing notes reviewed. Limited review of prior medical records performed Vital Signs: reviewed and remarkable for tachy Differential diagnosis: Differential diagnoses includes but is not limited to gastritis, peptic ulcer disease, GERD, gallbladder disease, pancreatitis, small bowel obstruction, acute coronary syndrome, pericarditis, ischemic bowel, irritable bowel disease, irritable bowel syndrome, appendicitis, diverticulitis, malignancy, hernia, urinary tract infection, torsion, 35, perforation, trauma, infectious. ER treatment provided: See below Diagnostics interpreted by me: ECG: SVT rate of 147 Left axis Right bundle branch block PVCs QTC 529 EKG #2 SVT 130 Left axis PVC QTC 529 EKG #3 Sinus rhythm rate of 91 Normal Benedict Right bundle branch block QTC 492 Cardiac Monitoring: An order was placed for continuous cardiac monitoring. The monitor shows a rate of 80 with sinus rhythm. Laboratory studies: As stated above and show below. Imaging studies: CT of the chest shows no PEs or pneumonia Chest x-ray was unremarkable Consultation(s): Discussed with Kaci from [facility] service for further evaluation Procedures: none Critical Care: I have personally spent 35 minutes of critical care time in the direct management of this patient. This includes bedside care, interpretation of diagnostic studies, and testing, discussion with consultants, patient, and family members, and other required patient management activities. This 35 minutes is in excess of all separately billable procedures. Past Med/Surg History Medical History (Updated 10/01/21 @ 17:07 by Gricelda Clarke PA-C) Asthma Well controlled CAD (coronary artery disease), mohegan coronary artery S/p two BMS's to RCA in 2017 Hypertension NSTEMI (non-ST elevated myocardial infarction) (09/08/16) Treated at [facility]. Follows with Dr Skaggs Pneumonia History of Vertigo Only occurs with quick changes in positions. Has been mild for several years Surgical History History of adenoidectomy History of cardiac cath (09/08/16) History of colonoscopy History of heart artery stent (09/08/16) x1 stent (RCA Prox) Integrity BMS. Dr Skaggs at [facility] History of tonsillectomy Hx of LASIK Family History Other No family history of adverse response to anesthesia Social History Smoking Status: Never smoker Second Hand Exposure: No; Hx Alcohol Use: No Hx Substance Use: No Preferred Language: Persian Costume Maker Required: No Beliefs That Will Affect Care: None Current Living Situation: Family and Significant Other Feels Safe at Home: Yes Assistive Devices: Glasses Allergies Allergies Allergy/AdvReac Type Severity Reaction Status Date / Time clopidogrel Allergy Intermediate hives and Verified 09/30/21 09:06 itching tetanus toxoid, adsorbed Allergy Unknown SWELLING Verified 09/30/21 09:06 TO EXTREMITY Home Meds Home Medications Medication Instructions Recorded Confirmed albuterol sulfate 90 mcg/actuation 1 inh INHALATION QID PRN 09/25/21 10/01/21 breath activated powder inhaler amlodipine 10 mg tablet 10 mg PO QPM 09/25/21 10/01/21 esomeprazole magnesium 20 mg 20 mg PO QAM 09/25/21 10/01/21 capsule,delayed release (Nexium 24HR) polyethylene glycol 3350 17 17 g PO 3XWK 09/25/21 10/01/21 gram/dose oral powder (Miralax) Previous Rx's Medication Instructions Recorded oxycodone-acetaminophen 5 mg-325 1 tab PO Q6H PRN #30 tab 09/30/21 mg tablet (Percocet) Results & Data (ED) Vital Signs Vital Signs - 24 hr 10/01/21 14:27 10/01/21 14:44 10/01/21 15:08 Temperature 36.7 C Temperature Source Temporal Artery Scan Pulse Rate 88 151 H Pulse Rate [Apical] 98 H Pulse Rhythm [Apical] Regular Respiratory Rate 16 17 16 Respiratory Effort / Characteristics Non-Labored Respiratory Depth Normal Normal Blood Pressure 136/89 Blood Pressure [Left Arm] 177/114 H Blood Pressure Mean 104 Blood Pressure Mean [Left Arm] 135 Pulse Oximetry 95 96 98 Oxygen Delivery Method Room Air Room Air Sepsis Recent Fever Within 48 Hours No Sepsis New/Unexplained Change in Mental Status No Sepsis Action Taken by Nursing No Action Required Laboratory Data Result diagrams: 10/01/21 15:00 10/01/21 15:00 Lab Results 10/01/21 10/01/21 10/01/21 Range/Units 15:00 15:00 15:00 WBC 7.35 (4.8-10.8) K/uL RBC 4.88 (4.7-6.1) M/uL Hgb 15.3 (14.0-18.0) g/dL Hct 45.3 (42-52) % MCV 92.8 (80-100) fL MCH 31.4 (25-34) pg MCHC 33.8 (32-36) g/dL RDW Std Deviation 42.5 (36.4-46.3) fL RDW Coeff of Juancarlos 12.5 (11.5-14.5) % Plt Count 239 (130-400) K/uL MPV 9.3 (7.4-10.4) fL Immature Gran % (Auto) 0.1 % Neut % (Auto) 75.8 % Lymph % (Auto) 15.4 % [place]air % (Auto) 8.3 % Eos % (Auto) 0.3 % Baso % (Auto) 0.1 % Neut # (Auto) 5.57 (1.4-6.5) K/uL Lymph # (Auto) 1.13 L (1.2-3.4) K/uL St[place] Clair # (Auto) 0.61 H (0.11-0.59) K/uL Eos # (Auto) 0.02 (0-0.5) K/uL Baso # (Auto) 0.01 (0-0.2) K/uL Immature Gran # (Auto) 0.01 (0.00-0.02) K/uL D-Dimer 910 H* (0-500) ug/L FEU Sodium 135 L (136-145) mmol/L Potassium 3.9 (3.5-5.1) mmol/L Chloride 102 (98-107) mmol/L Carbon Dioxide 24 (21-32) mmol/L Anion Gap 9 (3-11) BUN 15 (6-23) mg/dl Creatinine 1.01 (0.6-1.4) mg/dl Est Cr Clr Drug Dosing Not Reportable Est GFR ( Amer) 86.9 ml/min Est GFR (Non-Af Amer) 75.0 ml/min BUN/Creatinine Ratio 14.9 (10-20) Glucose 109 H (70-99(Fasting)) mg/dl Calcium 9.3 (8.5-10.1) mg/dl Magnesium 1.9 (1.7-2.4) mg/dl Total Bilirubin 0.9 (0.2-1.0) mg/dl AST 20 (13-39) U/L ALT 22 (7-52) U/L Alkaline Phosphatase 79 (34-104) U/L Troponin I High Sens 9.7 (0-20) pg/ml Total Protein 7.5 (6.0-8.3) gm/dl Albumin 4.3 (3.4-5.0) gm/dl Globulin 3.2 (2.5-4.0) gm/dl Albumin/Globulin Ratio 1.3 (0.9-2) Lipase 16 (11-82) U/L Urine Color Urine Appearance (Clear) Urine pH (4.5-7.5) Ur Specific Finger (1.000-1.030) Urine Protein (Negative) Urine Glucose (UA) (Negative) Urine Ketones (Negative) Urine Blood (Negative) Urine Nitrite (Negative) Urine Bilirubin (Negative) Urine Urobilinogen (Negative) Ur Leukocyte Esterase (Negative) Urine WBC (Auto) (0-5) /hpf Urine RBC (Auto) (0-4) /hpf U Hyaline Cast (Auto) (0-5) /lpf U Epithel Cells (Auto) (0-5) /lpf Urine Bacteria (Auto) (Negative) SARS-CoV-2, RNA, NAAT (NEGATIVE) 10/01/21 10/01/21 Range/Units 15:44 Unknown WBC (4.8-10.8) K/uL RBC (4.7-6.1) M/uL Hgb (14.0-18.0) g/dL Hct (42-52) % MCV (80-100) fL MCH (25-34) pg MCHC (32-36) g/dL RDW Std Deviation (36.4-46.3) fL RDW Coeff of Juancarlos (11.5-14.5) % Plt Count (130-400) K/uL MPV (7.4-10.4) fL Immature Gran % (Auto) % Neut % (Auto) % Lymph % (Auto) % St. Clair % (Auto) % Eos % (Auto) % Baso % (Auto) % Neut # (Auto) (1.4-6.5) K/uL Lymph # (Auto) (1.2-3.4) K/uL St. Clair # (Auto) (0.11-0.59) K/uL Eos # (Auto) (0-0.5) K/uL Baso # (Auto) (0-0.2) K/uL Immature Gran # (Auto) (0.00-0.02) K/uL D-Dimer (0-500) ug/L FEU Sodium (136-145) mmol/L Potassium (3.5-5.1) mmol/L Chloride (98-107) mmol/L Carbon Dioxide (21-32) mmol/L Anion Gap (3-11) BUN (6-23) mg/dl Creatinine (0.6-1.4) mg/dl Est Cr Clr Drug Dosing Est GFR ( Amer) ml/min Est GFR (Non-Af Amer) ml/min BUN/Creatinine Ratio (10-20) Glucose (70-99(Fasting)) mg/dl Calcium (8.5-10.1) mg/dl Magnesium (1.7-2.4) mg/dl Total Bilirubin (0.2-1.0) mg/dl AST (13-39) U/L ALT (7-52) U/L Alkaline Phosphatase (34-104) U/L Troponin I High Sens (0-20) pg/ml Total Protein (6.0-8.3) gm/dl Albumin (3.4-5.0) gm/dl Globulin (2.5-4.0) gm/dl Albumin/Globulin Ratio (0.9-2) Lipase (11-82) U/L Urine Color Yellow Urine Appearance Clear (Clear) Urine pH 5.0 (4.5-7.5) Ur Specific Finger 1.014 (1.000-1.030) Urine Protein Negative (Negative) Urine Glucose (UA) Negative (Negative) Urine Ketones Negative (Negative) Urine Blood Trace H (Negative) Urine Nitrite Negative (Negative) Urine Bilirubin Negative (Negative) Urine Urobilinogen Negative (Negative) Ur Leukocyte Esterase Negative (Negative) Urine WBC (Auto) 1-5 (0-5) /hpf Urine RBC (Auto) 0-4 (0-4) /hpf U Hyaline Cast (Auto) 0 (0-5) /lpf U Epithel Cells (Auto) 0-5 (0-5) /lpf Urine Bacteria (Auto) Negative (Negative) SARS-CoV-2, RNA, NAAT NEGATIVE (NEGATIVE) Administered Medications Discontinued Medications Adenosine (Adenosine Iv Soln 3 Mg/Ml 2 Ml Vial) Confirm Administered Dose 12 mg IV .STK-MED ONE Stop: 10/01/21 15:23 Last Admin: 10/01/21 15:34 Dose: 12 mg Documented by: [id number] Adenosine (Adenosine Iv Soln 3 Mg/Ml 2 Ml Vial) Confirm Administered Dose 6 mg IV .STK-MED ONE Stop: 10/01/21 15:30 Last Admin: 10/01/21 15:30 Dose: 6 mg Documented by: [id number] Sodium Chloride (Nss 1000ml) 1,000 mls @ 999 mls/hr IV .Q1H1M ONE Stop: 10/01/21 15:52 Last Infusion: 10/01/21 15:39 Dose: 0 mls/hr Documented by: [id number] Admin: 10/01/21 15:11 Dose: 999 mls/hr Documented by: [id number] Sodium Chloride (Nss 1000ml) 1,000 mls @ 999 mls/hr IV .Q1H1M ONE Stop: 10/01/21 16:34 Last Infusion: 10/01/21 17:03 Dose: 0 mls/hr Documented by: [id number] Admin: 10/01/21 15:39 Dose: 999 mls/hr Documented by: [id number] Ioversol (Optiray 320 125ml) 118 ml IV ONCE ONE Stop: 10/01/21 16:46 Last Admin: 10/01/21 16:48 Dose: 118 ml Documented by: [id number] Imaging Data Radiologist's Impression: Chest X-Ray 10/01/21 14:52 SINGLE VIEW CHEST CLINICAL HISTORY: Atypical chest pain FINDINGS: An AP, portable, upright chest radiograph is compared to study dated 12/09/2017. The heart is enlarged. The pulmonary vasculature is noncongested. Chronic interstitial thickening is similar to previous. There is mild left basilar atelectasis. The lungs and pleural spaces are otherwise clear. No pneumothorax is seen. The skeletal structures are osteopenic. The bony thorax is grossly intact. Advanced arthritic change is seen in the shoulders. Cholecystectomy clips are noted in the right upper quadrant. IMPRESSION: Cardiomegaly with no active disease in the chest. ACT 112: Negative or not required by law. Electronically signed by: Jayesh Betancourt M.D. 10/01/2021 3:17 PM Chest CTA 10/01/21 16:21 CT angio chest PE protocol CLINICAL HISTORY: post op tachycardic TECHNIQUE: Multidetector row helical CT of the chest was performed with angiogr aphic protocol. Coronal and sagittal reformations were obtained. Coronal and sagittal MIPS were obtained from the axial data set and were submitted for review. Automated dose lowering techniques and/or adjustment according to patient size were utilized for this exam. Comparison: Comparison is made to chest one view 10/01/2021 FINDINGS: Lungs and pleura: Atelectasis versus scarring is seen. Bronchial wall thickening is seen. Heart and pericardium: Heart size is normal. No pericardial effusion. Vessels: Moderate atherosclerotic changes in the aorta and coronary arteries. No pulmonary embolus is seen. Mediastinum and curtis: Subcentimeter lymph nodes are seen. Chest wall and lower neck: Subcentimeter thyroid nodules are noted which do not require follow-up by ACR criteria. Abdomen: Patient is status post cholecystectomy. Bones: Degenerative changes in the thoracic spine. Degenerative changes are also seen in the bilateral glenohumeral joints. IMPRESSION: No evidence of pulmonary embolism. Atelectasis versus scarring and bronchial wall thickening is seen. ACT 112: Negative or not required by law. Electronically signed by: Louie Chaves M.D. 10/01/2021 4:58 PM Discharge Plan Visit Data Chief Complaint: Unable to Void Stated Complaint: UNABLE TO VOID, CONSTIPATED, SURG YESTERDAY ED Provider: Warren Gary Discharge Problem: Abdominal pain, SVT (supraventricular tachycardia), Acute urinary retention Forms Stand Alone Forms: My [facility] [employer] Prescriptions Prescriptions: No Action amlodipine 10 mg Tablet 10 mg PO QPM RF: 0 polyethylene glycol 3350 [Miralax] 17 gram/dose Powder 17 g PO 3XWK RF: 0 esomeprazole magnesium [Nexium 24HR] 20 mg Capsule,Delayed Release(Dr/Ec) 20 mg PO QAM RF: 0 oxycodone-acetaminophen [Percocet] 5-325 mg tablet 1 tab PO Q6H PRN (Reason: pain) Qty: 30 RF: 0 Asmanex Twisthaler 220 mcg/ actuation (30) Aerosol Powdr Breath Activated 1 inh INHALATION BID RF: 0 Referrals Referrals: Dustin Salazar MD [Primary Care Provider] -
[2021-10-01 15:14] LABS: Basophils # (auto) 0.01 K/uL (0-0.2); Basophils % (auto) 0.1 %; Eosinophils # (auto) 0.02 K/uL (0-0.5); Eosinophils % (auto) 0.3 %; Hematocrit (blood only) 45.3 % (42-52); Hemoglobin 15.3 g/dL (14.0-18.0); Immature Granulocytes # (auto) 0.01 K/uL (0.00-0.02); Immature Granulocytes % (auto) 0.1 %; Lymphocytes # (auto) 1.13 K/uL (1.2-3.4); Lymphocytes % (auto) 15.4 %; Mean Corpuscular Hemoglobin 31.4 pg (25-34); Mean Corpuscular Hgb Conc 33.8 g/dL (32-36); Mean Corpuscular Volume 92.8 fL (80-100); Mean Platelet Volume 9.3 fL (7.4-10.4); Monocytes # (auto) 0.61 K/uL (0.11-0.59); Monocytes % (auto) 8.3 %; Neutrophils # (auto) 5.57 K/uL (1.4-6.5); Neutrophils % (auto) 75.8 %; Platelet Count 239 K/uL (130-400); RDW Coefficient of Variation 12.5 % (11.5-14.5); RDW Standard Deviation 42.5 fL (36.4-46.3); Red Blood Count 4.88 M/uL (4.7-6.1); White Blood Count 7.35 K/uL (4.8-10.8)
--- NOTE | 2021-10-01 15:18 | XRay Report ---
SINGLE VIEW CHEST CLINICAL HISTORY: Atypical chest pain FINDINGS: An AP, portable, upright chest radiograph is compared to study dated 12/09/2017. The heart i s enlarged. The pulmonary vasculature is noncongested. Chronic interstitial thickening is similar to previous. There is mild left basilar atelectasis. The lungs and pleural spaces are otherwise clear. N o pneumothorax is seen. The skeletal structures are osteopenic. The bony thorax is grossly intact. Ad vanced arthritic change is seen in the shoulders. Cholecystectomy clips are noted in the right upper quadrant. IMPRESSION: Cardiomegaly with no active disease in the chest. ACT 112: Negative or not required by law. Electronically signed by: Jayesh Betancourt M.D. 10/01/2021 3:17 PM
[2021-10-01] MEDS ORDERED: ADENOSINE IV SOLN 3 MG/ML 2 ML VIAL IV ONE ×2 (15:22→15:29)
[2021-10-01 15:33] LABS: Appearance Urine Clear (Clear); Bacteria Urine Automated Negative (Negative); Bilirubin Urine Negative (Negative); Blood Urine Trace (Negative); Cast Urine Automated 0 /lpf (0-5); Color Urine Yellow; Epithelial Cell Urine Auto 0-5 /lpf (0-5); Glucose Urine UA Negative (Negative); Ketones Urine Negative (Negative); Leukocyte Esterase Urine Negative (Negative); Nitrite Urine Negative (Negative); Protein Urine Negative (Negative); RBC Urine Automated 0-4 /hpf (0-4); Specific Gravity Urine 1.014 (1.000-1.030); Urobilinogen Urine Negative (Negative)
[2021-10-01 16:14] LABS: Alanine Aminotransferase 22 U/L (7-52); Albumin Globulin Ratio 1.3 (0.9-2); Albumin Level 4.3 gm/dl (3.4-5.0); Alkaline Phosphatase 79 U/L (34-104); Anion Gap 9 (3-11); Aspartate Aminotransferase 20 U/L (13-39); BUN Creatinine Ratio 14.9 (10-20); Bilirubin,Total 0.9 mg/dl (0.2-1.0); Blood Urea Nitrogen 15 mg/dl (6-23); Calcium 9.3 mg/dl (8.5-10.1); Carbon Dioxide 24 mmol/L (21-32); Chloride 102 mmol/L (98-107); Est GFR (African American) 86.9 ml/min; Globulin 3.2 gm/dl (2.5-4.0); Glucose 109 mg/dl (70-99(Fasting)); Lipase 16 U/L (11-82); Magnesium 1.9 mg/dl (1.7-2.4); Potassium 3.9 mmol/L (3.5-5.1); Sodium 135 mmol/L (136-145); Total Protein 7.5 gm/dl (6.0-8.3)
[2021-10-01 16:23] LABS: D Dimer 910 ug/L FEU (0-500)
[2021-10-01] MEDS ORDERED: OPTIRAY 320 125ml IV ONE (16:45)
[2021-10-01 16:54] LABS: Troponin I High Sensitivity 9.7 pg/ml (0-20)
--- NOTE | 2021-10-01 16:59 | CT Scan Report ---
CT angio chest PE protocol CLINICAL HISTORY: post op tachycardic TECHNIQUE: Multidetector row helical CT of the chest was performed with angiographic protocol. Mendez l and sagittal reformations were obtained. Coronal and sagittal MIPS were obtained from the axial nieves a set and were submitted for review. Automated dose lowering techniques and/or adjustment according to patient size were utilized for this exam. Comparison: Comparison is made to chest one view 10/01/2021 FINDINGS: Lungs and pleura: Atelectasis versus scarring is seen. Bronchial wall thickening is seen. Heart and pericardium: Heart size is normal. No pericardial effusion. Vessels: Moderate atherosclerotic changes in the aorta and coronary arteries. No pulmonary embolus is seen. Mediastinum and curtis: Subcentimeter lymph nodes are seen. Chest wall and lower neck: Subcentimeter thyroid nodules are noted which do not require follow-up by ACR criteria. Abdomen: Patient is status post cholecystectomy. Bones: Degenerative changes in the thoracic spine. Degenerative changes are also seen in the bilatera l glenohumeral joints. IMPRESSION: No evidence of pulmonary embolism. Atelectasis versus scarring and bronchial wall thickening is seen. ACT 112: Negative or not required by law. Electronically signed by: Louie Chaves M.D. 10/01/2021 4:58 PM
[2021-10-01] MEDS ORDERED: METOPROLOL TARTRATE 1 MG/ML VIAL IV PRN (17:00)
[2021-10-01] MEDS ORDERED: METOPROLOL TARTRATE 1 MG/ML VIAL IV STA (17:11)
--- NOTE | 2021-10-01 17:12 | History & Physical Report ---
Date of Service October 01, 2021 Assessment & Plan (1) Urinary retention: Plan: - Nicholson catheter placed in the ER with 1 L out, history of BPH likely exacerbating the problem, also likely secondary to having surgical procedure yesterday - UA appears clear, follow urine culture - Urology outpatient appointment has been scheduled for tomorrow at 1 PM, will consult urology now here in the hospital -Initiate Flomax - Check KUB with hx of 1 day no bowel movement and to rule out ileus with distension, distended from umbilical hernia repair/ lap sherin yesterday. - Continue miralax and add colace (2) SVT (supraventricular tachycardia): Plan: - Admit to tele for continuous monitoring, pacer pads in place - Consult cardiology - Given adenosine IV x2 and lopressor IV in the ER, will attempt po medication to maintain, metoprolol tartrate 25 mg BID with first dose tonight - D dimer elevated at 910 - CTA was conducted and was negative (3) CAD (coronary artery disease), [place] coronary artery: Plan: -History of such, has bare-metal stent placed in RCA in August 2016 -Continue amlodipine, patient reports being weaned off of many other cardiac medications per 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 -Follows with Dr. Monique as an outpatient (4) Hypertension: Plan: -Amlodipine as above (5) HLD (hyperlipidemia): Plan: Not on any cholesterol medication DVT PPx: - teds, scds, Lovenox subcu CODE: Full code Dispo: From home, likely to remain in the hospital x 1-2 days History of Present Illness Chief Complaint: urinary retention Primary Care Provider: Dustin Salazar MD This is a 71 yo M with PMhx of CAD with bare-metal stent in the RCA placed in July 2017 due to GA, HTN, HLD, peptic ulcer disease, and recently underwent laparoscopic cholecystectomy and open umbilical hernia repair by Dr. Blunt yesterday, 10/01/2021. He presents today due to urinary retention. He reports having small amounts of clear yellow urine starting at 5 PM yesterday once he was home, which continued throughout the night into this morning. He was at times incontinent of very small amounts of urine. Patient admits to having some abdominal distention still and feels sore from his procedure. He did not take any pain medication since being home, as he does not like to take pain medication. Patient reports having his last bowel movement yesterday morning prior to surgery however feels slightly constipated as he has not been able to go today. He denies any fevers, sweats or chills. In regards to fast heart rate, he does not know that it is happening, denies lightheadedness, dizziness, shortness of breath, chest pain or palpitations. He has never had any issues with his heart before. Even prior to requiring the coronary artery stent to his RCA in August 2016, he did not classic cardiac symptoms. Nichoslon catheter has been inserted in the ER and outs =1 L. Was found to be in SVT prior to urine being drained, which improved afterwards, however seems to go in and out of tachycardia while in the ER. Adenosine milligram and IV 6 mg IV and 12 mg IV was administered in the ER without breaking SVT. He was then given 1 dose of metoprolol tartrate 5 mg IV with slight improvement. We will start metoprolol tartrate 25 mg twice daily with the first dose tonight. D-dimer was obtained and found to be elevated at 917, CTA was then conducted which was negative. Allergies Allergy/AdvReac Type Severity Reaction Status Date / Time clopidogrel Allergy Intermediate hives and Verified 09/30/21 09:06 itching tetanus toxoid, adsorbed Allergy Unknown SWELLING Verified 09/30/21 09:06 TO EXTREMITY aspirin AdvReac Bleeds Verified 10/01/21 17:39 when voids Home Medications Medication Instructions Recorded Confirmed Type amlodipine 10 mg tablet 10 mg PO QPM 09/25/21 10/01/21 History esomeprazole magnesium 20 mg 20 mg PO QAM 09/25/21 10/01/21 History capsule,delayed release (Nexium 24HR) polyethylene glycol 3350 17 17 g PO 3XWK 09/25/21 10/01/21 History gram/dose oral powder (Miralax) oxycodone-acetaminophen 5 mg-325 1 tab PO Q6H PRN #30 tab 09/30/21 10/01/21 Rx mg tablet (Percocet) mometasone (Asmanex Twisthaler) 1 inh INHALATION BID 10/01/21 10/01/21 History Past Med/Surg History Medical History (Updated 10/01/21 @ 17:07 by Gricelda Clarke PA-C) Asthma Well controlled CAD (coronary artery disease), [place] coronary artery S/p two BMS's to RCA in 2017 Hypertension NSTEMI (non-ST elevated myocardial infarction) (09/08/16) Treated at [facility]. Follows with Dr Skaggs Pneumonia History of Vertigo Only occurs with quick changes in positions. Has been mild for several years Surgical History History of adenoidectomy History of cardiac cath (09/08/16) History of colonoscopy History of heart artery stent (09/08/16) x1 stent (RCA Prox) Integrity BMS. 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 Required: No Beliefs That Will Affect Care: None Current Living Situation: Family and Significant Other Feels Safe at Home: Yes Assistive Devices: Glasses Review of Systems Review of Systems: Constitutional: No fever, sweats or chills Eyes: No diplopia, no worsening or blurred vision ENT: normal hearing, no trouble swallowing Respiratory: No cough, sputum, dyspnea at rest or on exertion Cardiovascular: No chest pain, tightness or palpitations Abdomen: + Slightly sore, slightly distended, no pain, nausea, vomiting, diarrhea, Last BM was yesterday morning prior to surgery : As per HPI Musculoskeletal: No joint pain, calf pain, swelling Neurologic: No weakness, numbness/tingling, or balance problems Psychiatric: No anxiety or depression Skin: No rash or itch Physical Exam Physical Exam: General: awake, alert, no apparent distress, appears younger than stated age Head: Normocephalic, atraumatic ENT: PERRL, EOMI, no pharyngeal exudate, mucous membranes moist Chest: Clear to auscultation, on room air, no adventitious breath sounds Cardiac: SVT with rates going from 80s to the 130s while at bedside, Pacer pads in place, no murmur, no JVD, normal peripheral pulses, good capillary refill Abdominal: NABS x 4 quadrants, + laparoscopic scopic incision sites closed, dressing over umbilicus is C/C/I, soft, + mildly distended, minimally tender to palpation, no rebound or guarding Extremities: Normal inspection, no peripheral edema or erythema, calfs nontender to palpation Psych: Normal mood and affect Neuro: AAO x 3, strength intact bilaterally and rated 5/5, no motor deficits, speech is clear, no peripheral sensory deficits Results & Data Results & Data ([facility]) Vital Signs (Past 12 Hours) Vital Signs Temp Pulse Pulse Resp BP BP Pulse Ox 10/01/21 15:08 151 H 16 98 10/01/21 14:44 98 H 17 177/114 H 96 10/01/21 14:27 36.7 C 88 16 136/89 95 Laboratory Results 10/01/21 10/01/21 10/01/21 Unknown 15:44 15:00 WBC RBC Hgb Hct MCV MCH MCHC RDW Std Deviation RDW Coeff of Juancarlos Plt Count MPV Immature Gran % (Auto) Neut % (Auto) Lymph % (Auto) Story % (Auto) Eos % (Auto) Baso % (Auto) Neut # (Auto) Lymph # (Auto) Story # (Auto) Eos # (Auto) Baso # (Auto) Immature Gran # (Auto) D-Dimer 910 H* Sodium Potassium Chloride Carbon Dioxide Anion Gap BUN Creatinine Est Cr Clr Drug Dosing Est GFR ( Amer) Est GFR (Non-Af Amer) BUN/Creatinine Ratio Glucose Calcium Magnesium Total Bilirubin AST ALT Alkaline Phosphatase Troponin I High Sens Total Protein Albumin Globulin Albumin/Globulin Ratio Lipase Urine Color Yellow Urine Appearance Clear Urine pH 5.0 Ur Specific [place] 1.014 Urine Protein Negative Urine Glucose (UA) Negative Urine Ketones Negative Urine Blood Trace H Urine Nitrite Negative Urine Bilirubin Negative Urine Urobilinogen Negative Ur Leukocyte Esterase Negative Urine WBC (Auto) 1-5 Urine RBC (Auto) 0-4 U Hyaline Cast (Auto) 0 U Epithel Cells (Auto) 0-5 Urine Bacteria (Auto) Negative SARS-CoV-2, RNA, NAAT NEGATIVE 10/01/21 10/01/21 15:00 15:00 WBC 7.35 RBC 4.88 Hgb 15.3 Hct 45.3 MCV 92.8 MCH 31.4 MCHC 33.8 RDW Std Deviation 42.5 RDW Coeff of Juancarlos 12.5 Plt Count 239 MPV 9.3 Immature Gran % (Auto) 0.1 Neut % (Auto) 75.8 Lymph % (Auto) 15.4 Story % (Auto) 8.3 Eos % (Auto) 0.3 Baso % (Auto) 0.1 Neut # (Auto) 5.57 Lymph # (Auto) 1.13 L Story # (Auto) 0.61 H Eos # (Auto) 0.02 Baso # (Auto) 0.01 Immature Gran # (Auto) 0.01 D-Dimer Sodium 135 L Potassium 3.9 Chloride 102 Carbon Dioxide 24 Anion Gap 9 BUN 15 Creatinine 1.01 Est Cr Clr Drug Dosing Not Reportable Est GFR ( Amer) 86.9 Est GFR (Non-Af Amer) 75.0 BUN/Creatinine Ratio 14.9 Glucose 109 H Calcium 9.3 Magnesium 1.9 Total Bilirubin 0.9 AST 20 ALT 22 Alkaline Phosphatase 79 Troponin I High Sens 9.7 Total Protein 7.5 Albumin 4.3 Globulin 3.2 Albumin/Globulin Ratio 1.3 Lipase 16 Urine Color Urine Appearance Urine pH Ur Specific [place] Urine Protein Urine Glucose (UA) Urine Ketones Urine Blood Urine Nitrite Urine Bilirubin Urine Urobilinogen Ur Leukocyte Esterase Urine WBC (Auto) Urine RBC (Auto) U Hyaline Cast (Auto) U Epithel Cells (Auto) Urine Bacteria (Auto) SARS-CoV-2, RNA, NAAT Diagnostic Findings Chest X-Ray 10/01/21 14:52 SINGLE VIEW CHEST CLINICAL HISTORY: Atypical chest pain FINDINGS: An AP, portable, upright chest radiograph is compared to study dated 12/09/2017. The heart is enlarged. The pulmonary vasculature is noncongested. Chronic interstitial thickening is similar to previous. There is mild left basilar atelectasis. The lungs and pleural spaces are otherwise clear. No pneumothorax is seen. The skeletal structures are osteopenic. The bony thorax is grossly intact. Advanced arthritic change is seen in the shoulders. Cholecystectomy clips are noted in the right upper quadrant. IMPRESSION: Cardiomegaly with no active disease in the chest. ACT 112: Negative or not required by law. Electronically signed by: Jayesh Betancourt M.D. 10/01/2021 3:17 PM Chest CTA 10/01/21 16:21 CT angio chest PE protocol CLINICAL HISTORY: post op tachycardic TECHNIQUE: Multidetector row helical CT of the chest was performed with angiographic protocol. Coronal and sagittal reformations were obtained. Coronal and sagittal MIPS were obtained from the axial data set and were submitted for review. Automated dose lowering techniques and/or adjustment according to patient size were utilized for this exam. Comparison: Comparison is made to chest one view 10/01/2021 FINDINGS: Lungs and pleura: Atelectasis versus scarring is seen. Bronchial wall thickening is seen. Heart and pericardium: Heart size is normal. No pericardial effusion. Vessels: Moderate atherosclerotic changes in the aorta and coronary arteries. No pulmonary embolus is seen. Mediastinum and curtis: Subcentimeter lymph nodes are seen. Chest wall and lower neck: Subcentimeter thyroid nodules are noted which do not require follow-up by ACR criteria. Abdomen: Patient is status post cholecystectomy. Bones: Degenerative changes in the thoracic spine. Degenerative changes are also seen in the bilateral glenohumeral joints. IMPRESSION: No evidence of pulmonary embolism. Atelectasis versus scarring and bronchial wall thickening is seen. ACT 112: Negative or not required by law. Electronically signed by: Louie Chaves M.D. 10/01/2021 4:58 PM ECG Additional Comments: Reviewed personally by myself, showing SVT Code Status & VTE Plan Code Status Full code-discussed with the patient at bedside Supervising Physician Co-Signing Physician Notes Pt is a 71 y/o M with hx of CAD s/p stent, HTN, HLD, BPH (not on any meds), and recent Laparoscopic cholecystectomy, & open repair of incarcerated umbilical hernia (09/30/21) admitted for SVT and Urinary retention. PE: NAD, well developed Lungs: CTA, no wheezing or crackles Cardiac: normal S1/S2, no murmur Abd: ND, soft, TTP near the surgical scar MSK: no edema Psych: AAOx3, and normal affect A/P: SVT: -pt is s/p adenosine x2 and Lopressor -pt is currently on sinus rhythm -likely 2/2 recent surgery -d-dimer is elevated: CTA chest is neg for PE -hs trop is neg -for now will continue metoprolol 25mg BID -due to hx of CAD will get echo and cardiology consult Urinary retention: -s/p nicholson -UA did not show sign of UTI -will start the pt on Flomax -Urology consult Recent Laparoscopic cholecystectomy, open repair of incarcerated umbilical hernia -recovering well -since pts LBM was 2 days ago will get abd xr HTN: -pt is on amlodipine -since he is hypertensive in the ER will continue amlodipine ---- depending on pts response to metoprolol might need to change the amlodipine dose Other chronic condition: -plan as above Agree with A/P by Gricelda Clarke PA-C
--- NOTE | 2021-10-01 18:28 | XRay Report ---
XR KUB/Abdomen 1 view CLINICAL HISTORY: abd distension, r/o ileus, constipation TECHNIQUE: 1 view of the abdomen was obtained. Comparison: None available at the time of this dictation. FINDINGS: Lung bases are unremarkable. The osseous structures are grossly unremarkable. The bowel gas pattern i s nonobstructive. A moderate amount of stool is noted within the large bowel. IMPRESSION: Nonobstructive bowel gas pattern. ACT 112: Negative or not required by law. Electronically signed by: Louie Chaves M.D. 10/01/2021 6:26 PM
[2021-10-01] MEDS ORDERED: ONDANSETRON INJ 2 MG/ML 2 ML VIAL IV PRN (20:18)
[2021-10-01] MEDS ORDERED: ACETAMINOPHEN 325 MG TAB PO PRN (20:18)
[2021-10-01] MEDS ORDERED: oxyCODONE/ACETAMINOPHEN 5mg/325mg TAB PO PRN (20:18)
[2021-10-01] MEDS ORDERED: SIMETHICONE 80 MG CHEW PO PRN (20:23)
--- NOTE | 2021-10-01 20:48 | Urology Consultation ---
Date of Consultation October 01, 2021 Assessment & Plan (1) Urinary retention: Patient has been admitted on the hospitalist service secondary to SVT noted at time of admission along with urinary retention. Concerning his urinary retention recommend the following: Maintain James catheter for bladder rest for 24 to 48 hours Patient is hospitalized for several days a voiding trial can be attempted while he is in the hospital Patient is scheduled for discharge home tomorrow he can go home with a James catheter in place and he could keep his scheduled [facility] Consideration can be given to placing the patient on a medication to help with his BPH such as Flomax Remainder of plan as directed by medical service History of Present Illness Reason for Consultation: Urinary retention Attending Physician: Kayla Lima MD History of Present Illness This is a 71-year-old male who presented to [facility] emergency department secondary to urinary retention. This patient reports that yesterday he underwent a laparoscopic cholecystectomy and umbilical hernia repair by Dr. Blunt. Patient says that his surgery was uneventful and he was discharged home the same day as his surgery. Upon return home the patient notes that he was initially able to void, but earlier today he was having urinary frequency and only passing small amounts of urine. He notes he eventually reached the point when he could barely urinate at all which prompted his visit to the emergency department. I did question patient on urologic history and he says he has a known history of BPH but does not take any medications for this. He also notes that he does not regularly follow with a urologist. He does note that he was scheduled to see Dr. Scott Manzano of [facility] urology tomorrow, 10/02/2021. I did question patient on his urinary symptoms and he notes that he does note a decreased force of his urine stream, he also notes some urinary hesitancy as it sometimes takes him a few minutes to initiate voiding. He does feel when he voids he is able to empty his bladder completely. He denies any dysuria or hematuria. The patient does note a previous history of urinary retention following a back injury for which he took some narcotic pain medications but notes that this self resolved. In the emergency department patient had labs and imaging which I independently reviewed. He did have a KUB that showed a nonobstructive bowel gas pattern. He had a CT scan of the chest that showed no evidence of pulmonary emboli. He also had a chest x-ray that showed no evidence of pneumonia. Labs include a CBC her white blood cell count, hemoglobin, hematocrit, and platelet count are all normal. Chemistry profile showed a sodium was 135. Potassium, BUN, and creatinine were all normal. Urinalysis was not indicative of infection and a Covid test was noted be negative. Upon presentation the emergency department patient did have a James catheter placed and when the catheter was placed approximately 1 L of clear urine was drained. The patient did note a great deal of symptomatic relief with this modality. At the time of my interview he was resting comfortably in bed in no distress. Allergies Allergy/AdvReac Type Severity Reaction Status Date / Time clopidogrel Allergy Intermediate hives and Verified 09/30/21 09:06 itching tetanus toxoid, adsorbed Allergy Unknown SWELLING Verified 09/30/21 09:06 TO EXTREMITY aspirin AdvReac Bleeds Verified 10/01/21 17:39 when voids Home Medications Medication Instructions Recorded Confirmed Type amlodipine 10 mg tablet 10 mg PO QPM 09/25/21 10/01/21 History esomeprazole magnesium 20 mg 20 mg PO QAM 09/25/21 10/01/21 History capsule,delayed release (Nexium 24HR) polyethylene glycol 3350 17 17 g PO 3XWK 09/25/21 10/01/21 History gram/dose oral powder (Miralax) oxycodone-acetaminophen 5 mg-325 1 tab PO Q6H PRN #30 tab 09/30/21 10/01/21 Rx mg tablet (Percocet) mometasone (Asmanex Twisthaler) 1 inh INHALATION BID 10/01/21 10/01/21 History Patient History Medical History Asthma Well controlled CAD (coronary artery disease), [place] coronary artery S/p two BMS's to RCA in 2017 Hypertension NSTEMI (non-ST elevated myocardial infarction) (09/08/16) Treated at [facility]. Follows with Dr Skaggs Pneumonia History of Vertigo Only occurs with quick changes in positions. Has been mild for several years Surgical History History of adenoidectomy History of cardiac cath (09/08/16) History of colonoscopy History of heart artery stent (09/08/16) x1 stent (RCA Prox) Integrity BMS. Dr Skaggs at [facility] History of tonsillectomy Hx of LASIK Family History Other No family history of adverse response to anesthesia Social History Smoking Status: Never smoker Second Hand Exposure: No; Do You Dip or Chew Tobacco: No; Tobacco Cessation Education Requested by Patient: No Hx Alcohol Use: No Hx Substance Use: No Preferred Language: German Communication Ability: Effective Imaging Services Director Required: No Beliefs That Will Affect Care: None Current Living Situation: Spouse Current Living Situation Comment: Lives at home with his Other Information That Helps Us Care for You: No Feels Safe at Home: Yes Safety Concerns: Feels Safe At This Time Assistive Devices: None Assistive Devices Comment: reading glasses Review of Systems Constitutional: no fever and no chills Eyes: no diplopia Ear, Nose, Mouth, Throat: no ear pain Respiratory: no cough and no dyspnea Cardiovascular: no chest pain Gastrointestinal: no abdominal pain, no nausea and no vomiting Genitourinary: + as per Subjective / HPI Musculoskeletal: no back pain Integumentary: no rash Neurologic: no localized weakness Physical Exam Constitutional: well developed and well nourished; no acute distress Eyes: no conjunctival abnormality ENMT: Ears: no hearing impairment Mouth: no oropharynx abnormality Neck: trachea midline Respiratory: normal respiratory effort; no respiratory distress and no labored breathing Cardiovascular: Rate/Rhythm: regular rate and regular rhythm Gastrointestinal (Abdomen): Soft and nondistended. Patient did have appropriate tenderness with palpation at his surgical incisions. Musculoskeletal: No calf tenderness Skin: no rashes Neurologic: moves all extremities Psychiatric: A+Ox3, euthymic affect Genitourinary: James catheter is in place draining clear yellow urine Results & Data ([facility]) Vital Signs (Past 12 Hours) Vital Signs Temp Pulse Pulse Resp BP BP Pulse Ox 10/01/21 18:20 80 16 145/80 H 98 10/01/21 17:21 86 152/93 H 10/01/21 15:08 151 H 16 98 10/01/21 14:44 98 H 17 177/114 H 96 10/01/21 14:27 36.7 C 88 16 136/89 95 PG Care Time/CCT Total # of Minutes Spent Total Time Spent with Patient: Total time spent is greater than 50% in coordination of care (as documented) at patient's floor/unit and/or counseling patient: Coding Level of Care Code 36372 Inpt Consult Level 5 Diagnoses Urinary retention R33.9
[2021-10-01] MEDS: TAMSULOSIN HCL 0.4 MG CAP PO SCH (22:00)
[2021-10-01] MEDS: amLODIPine BESYLATE 5 MG TAB PO SCH (22:31)
[2021-10-01] MEDS: DOCUSATE SODIUM 100 MG CAP PO SCH (22:33)
[2021-10-01] MEDS: FLUTICASONE FUROATE 200MCG 14 PUFFS/INHALER INH SCH (22:33)
[2021-10-02] MEDS: METOPROLOL TARTRATE 25 MG TAB PO SCH ×4 (06:25→21:15)
[2021-10-02 06:44] LABS: Hematocrit (blood only) 42.6 % (42-52); Hemoglobin 14.4 g/dL (14.0-18.0); Mean Corpuscular Hemoglobin 31.5 pg (25-34); Mean Corpuscular Hgb Conc 33.8 g/dL (32-36); Mean Corpuscular Volume 93.2 fL (80-100); Mean Platelet Volume 9.8 fL (7.4-10.4); Platelet Count 210 K/uL (130-400); RDW Coefficient of Variation 12.6 % (11.5-14.5); RDW Standard Deviation 43.2 fL (36.4-46.3); Red Blood Count 4.57 M/uL (4.7-6.1); White Blood Count 6.39 K/uL (4.8-10.8)
[2021-10-02 07:04] LABS: Albumin Globulin Ratio 1.3 (0.9-2); Albumin Level 3.7 gm/dl (3.4-5.0); BUN Creatinine Ratio 14.9 (10-20); Bilirubin,Total 0.9 mg/dl (0.2-1.0); Calcium 8.7 mg/dl (8.5-10.1); Creatinine Clr Calc Pharmacy 77.9 ml/min; Est GFR (African American) 94.8 ml/min; Est GFR (Non-African American) 81.8 ml/min; Globulin 2.8 gm/dl (2.5-4.0); Magnesium 1.9 mg/dl (1.7-2.4); Potassium 3.5 mmol/L (3.5-5.1); Total Protein 6.5 gm/dl (6.0-8.3)
--- NOTE | 2021-10-02 08:09 | Cardiology Consultation ---
Date of Consultation October 02, 2021 Assessment & Plan (1) Atrial flutter: (2) SVT (supraventricular tachycardia): Experienced urinary retention post surgery 09/30. Notable ? SVT on monitor prior to draining. Did not respond to adenosine IVP x2. Metoprolol added. I believe that the telemetry and EKG tracings are more characteristic for paroxysmal atrial flutter. -Increase metoprolol to 25 mg TID -Replace lytes as necessary, 40 meq of KCL ordered this am -Discussed patient about the pathophysiology of parox Aflutter and stroke risk- patient is adamant about NOT starting anticoagulation at this time. Patient does NOT want to start ASA due to history of urinary bleeding in the past. He stated that he understood the risk. -Can also consider sotalol load while inpatient, but patient will need to agree to anticoagulation prior. -Avoid caffeine products, increase hydration. -Echo ordered to assess structural heart and LV systolic function. (3) Urinary retention: On 09/30 underwent laparoscopic cholecystectomy and open umbilical hernia repair by Dr. Gracie Blunt MD at [facility]. Nicholson catheter has been inserted in the ER and outs =1 L. Currently has nicholson in place- urology following. (4) CAD (coronary artery disease), [place] coronary artery: CAD, 09/08/2016 cardiac cath at [facility] revealed ulcerated subtotal severe proximal right coronary artery lesion, undergoing PCI with Pharmapodtronic Integrity 4 mm x 22 mm bare metal stent. Stable, no angina. -Can consider outpatient stress testing in the setting of new aflutter. (5) Hypertension: Well controlled. Case discussed with Dr. Vides. Supervising Physician Co-Signing Physician Notes Patient seen and examined with PRASHANTH Preciado. Agree with findings and assessment as above. History of Present Illness Reason for Consultation: SVT Requesting Physician: Myriam Hospitalist Attending Physician: Patricia Mcghee MD History of Present Illness 71 year old male. Follows with Dr. Monique as an outpatient- last seen 09/26 for preop examination. PMH listed below. Underwent laparoscopic cholecystectomy and open umbilical hernia repair by Dr. Blunt yesterday, 10/01/2021. Presents due to urinary retention. On 09/30 underwent laparoscopic cholecystectomy and open umbilical hernia repair by Dr. Gracie Blunt MD at [facility]. Nicholson catheter has been inserted in the ER and outs =1 L. Was found to be in SVT prior to urine being drained. Adenosine 6 mg IV and 12 mg IV was administered in the ER without breaking SVT. He was then given 1 dose of metoprolol tartrate 5 mg IV with slight improvement then started on metoprolol succinate 25 mg BID. D-Dimer elevated at 917, CT of chest negative for PE. Lab work this morning was unremarkable- sodium improved to WNL, Potassium low normal at 3.5, Negative Trop x2. EKG: SR with bifascicular block, occasional PVCs. Tele: SR with PVCs, 80s and SVT vs [place] flutter in the 150s. Upon entrance into the room patient sitting up in his chair feeling well without complaint. Patient stated he gets very anxious in a hospital setting and it did not help that they gave him caffeinated coffee this am instead of decaf. He is having complaints of palpitations, but no chest pain or shortness of breath. No dizziness or syncope. No orthopnea, PND, or increased lower extremity edema. No fever, chills, cough, hematochezia, melena, or hemoptysis. Nicholson cath in place draining freely. PROBLEM LIST: -CAD, 09/08/2016 cardiac cath at [facility] revealed ulcerated subtotal severe proximal right coronary artery lesion, undergoing PCI with Medtronic Integrity 4 mm x 22 mm bare metal stent. -Allergy to Plavix (rash), tolerates Brilinta. -Hx of urinary bleeding on ASA -HTN -HLD, statin intolerance -PUD Allergies Allergy/AdvReac Type Severity Reaction Status Date / Time clopidogrel Allergy Intermediate hives and Verified 09/30/21 09:06 itching tetanus toxoid, adsorbed Allergy Unknown SWELLING Verified 09/30/21 09:06 TO EXTREMITY aspirin AdvReac Bleeds Verified 10/01/21 17:39 when voids Home Medications Medication Instructions Recorded Confirmed Type amlodipine 10 mg tablet 10 mg PO QPM 09/25/21 10/01/21 History esomeprazole magnesium 20 mg 20 mg PO QAM 09/25/21 10/01/21 History capsule,delayed release (Nexium 24HR) polyethylene glycol 3350 17 17 g PO 3XWK 09/25/21 10/01/21 History gram/dose oral powder (Miralax) oxycodone-acetaminophen 5 mg-325 1 tab PO Q6H PRN #30 tab 09/30/21 10/01/21 Rx mg tablet (Percocet) mometasone (Asmanex Twisthaler) 1 inh INHALATION BID 10/01/21 10/01/21 History aspirin 81 mg tablet,delayed 81 mg PO QAM 30 Days #30 tab 10/03/21 Rx release metoprolol tartrate 25 mg tablet See Rx Instructions .ROUTE 10/03/21 Rx .COMPLEX #90 tab tamsulosin 0.4 mg capsule 0.4 mg PO HS 30 Days #30 cap 10/03/21 Rx Patient History Medical History Asthma Well controlled CAD (coronary artery disease), [place] coronary artery S/p two BMS's to RCA in 2017 Hypertension NSTEMI (non-ST elevated myocardial infarction) (09/08/16) Treated at [facility]. Follows with Dr Skaggs Pneumonia History of Vertigo Only occurs with quick changes in positions. Has been mild for several years Surgical History History of adenoidectomy History of cardiac cath (09/08/16) History of colonoscopy History of heart artery stent (09/08/16) x1 stent (RCA Prox) Integrity BMS. Dr Skaggs at [facility] History of tonsillectomy Hx of LASIK Family History Other No family history of adverse response to anesthesia Social History Smoking Status: Unknown if ever smoked Second Hand Exposure: No; Hx Alcohol Use: No Hx Substance Use: No Preferred Language: Citizen Of [place] Communication Ability: Effective [employer] Required: No Beliefs That Will Affect Care: None Current Living Situation: Spouse Current Living Situation Comment: Lives at home with his Feels Safe at Home: Yes Assistive Devices: None Review of Systems Review of Systems: All systems reviewed & are unremarkable except as noted in HPI & below Physical Exam Physical Exam: General: No acute distress. A+Ox3. HEENT: Normocephalic. Atraumatic. Conjunctiva and sclera clear. NECK: No carotid bruits. No JVD. Carotid upstrokes are brisk. Heart: RRR. S1 and S2 noted without murmur, rubs, gallops. PMI non displaced. Lungs: Clear to auscultation. No wheezes, rhonchi, rales. Abdomen: Normal bowel sounds. Soft. Nontender. No masses or organomegaly. No abdominal bruits. Extremities: No edema. No clubbing or cyanosis. Pulses: radial=2/4, posterior tibial=2/4, dorsalis pedis = 2/4. NEURO: No focal deficits. PSYCH: Normal. Results & Data ([facility]) Vital Signs (Past 12 Hours) Vital Signs Temp Pulse Pulse Resp BP Pulse Ox 10/02/21 03:26 36.8 C 74 17 143/84 H 94 10/02/21 00:46 91 H 10/01/21 23:17 36.8 C 77 18 139/78 98 10/01/21 20:52 84 10/01/21 20:35 36.8 C 84 19 135/82 96 Laboratory Results Cardiac Enzymes 10/01/21 10/02/21 Range/Units 15:00 06:15 AST 20 14 (13-39) U/L CBC 10/01/21 10/02/21 Range/Units 15:00 06:15 WBC 7.35 6.39 (4.8-10.8) K/uL RBC 4.88 4.57 L (4.7-6.1) M/uL Hgb 15.3 14.4 (14.0-18.0) g/dL Hct 45.3 42.6 (42-52) % Plt Count 239 210 (130-400) K/uL Neut # (Auto) 5.57 (1.4-6.5) K/uL Lymph # (Auto) 1.13 L (1.2-3.4) K/uL [place] # (Auto) 0.61 H (0.11-0.59) K/uL Eos # (Auto) 0.02 (0-0.5) K/uL Baso # (Auto) 0.01 (0-0.2) K/uL Comprehensive Metabolic Panel 10/01/21 10/02/21 Range/Units 15:00 06:15 Sodium 135 L 137 (136-145) mmol/L Potassium 3.9 3.5 (3.5-5.1) mmol/L Chloride 102 105 (98-107) mmol/L Carbon Dioxide 24 25 (21-32) mmol/L BUN 15 14 (6-23) mg/dl Creatinine 1.01 0.94 (0.6-1.4) mg/dl Glucose 109 H 126 H (70-99(Fasting)) mg/dl Calcium 9.3 8.7 (8.5-10.1) mg/dl AST 20 14 (13-39) U/L ALT 22 18 (7-52) U/L Alkaline Phosphatase 79 68 (34-104) U/L Total Protein 7.5 6.5 (6.0-8.3) gm/dl Albumin 4.3 3.7 (3.4-5.0) gm/dl Intake and Output 10/01/21 10/02/21 10/02/21 22:59 06:59 14:59 Intake Total 1999 / 1999 Output Total 850 / 1550 700 / 1550 Balance 1150 / 450 -700 / 450 Intake: IV 1999 / 1999 Sodium Chloride 0.9% 1000ML 1, 1999 / 1999 000 ml @ 999 mls/hr IV .Q1H1M ONE Rx#:[id number] Output: Urine Amount (Catheter) 850 / 1550 700 / 1550 Nicholson/Indwelling 850 / 1550 700 / 1550 Other: Weight 85.185 kg 84.7 kg Weight Measurement Method Standing Scale Built in [facility] Diagnostic Findings September 08, 2016 cardiac catheterization at [facility] revealed an ulcerated subtotal severe proximal right coronary artery lesion, undergoing PCI with Medtronic Integrity 4 mm x 22 mm bare metal stent. Coronary anatomy was notably right dominant. The left main was described as normal. The left circumflex was described as normal. The LAD was described as having a 50% proximal stenosis and the D2 was described as having a 50% proximal stenosis. LV gram revealed an EF of 60% without mitral regurgitation.
[2021-10-02] MEDS ORDERED: POTASSIUM CHLORIDE CRTAB 20 MEQ TABCR PO ONE (08:30)
[2021-10-02] MEDS: DOCUSATE SODIUM 100 MG CAP PO SCH ×2 (08:31→21:16)
[2021-10-02] MEDS: PANTOprazole 40 MG TAB PO SCH (08:31)
[2021-10-02] MEDS: ENOXAPARIN INJ 40 MG/0.4 ML SYR SQ SCH ×2 (08:32→08:36)
--- NOTE | 2021-10-02 12:56 | Hospitalist Progress Note ---
Date of Service October 02, 2021 Assessment & Plan (1) Urinary retention: Plan: Urinary retention likely due to recent surgical procedure Nicholson catheter was placed in the ER with 1 L out Urologist recommendations appreciated Continue nicholson for now as advised Continue flomax Patient will follow up with Urology outpatient. Patient's daughter who was at bedside reported she will call his Urologist to reschedule appt scheduled for earlier today (2) SVT (supraventricular tachycardia): Plan: Was noted to have SVT on admission Got adenosine IV x2 and lopressor IV in the ER and was started on po lopressor bid D dimer elevated at 910 CTA was conducted and was negative for PE Went into Atrial flutter with RVR this morning Now back to sinus rhythm Cardiology has already increased lopressor to 25mg TID Will await final Cardiology evaluation and recommendations. Patient currently getting TTE Discussed risks of Aflutter with patient and daughter. He reported he had hematuria and some hematochezia to aspirin in the past. 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 Follows with Dr. Monique as an outpatient (4) Hypertension: Plan: Amlodipine as above (5) HLD (hyperlipidemia): Plan: Not on any cholesterol medication DVT PPx: - Lovenox sq CODE: Full code Dispo: Plan to [facility] tomorrow Admission and Anticipated Discharge Date Admission Date: October 01, 2021 Subjective 71-year-old man with history of CAD status post bare-metal stent to RCA, hypertension, peptic ulcer disease who underwent laparoscopic cholecystectomy and open umbilical hernia repair on 09/30/21 who presented the day after surgery for urinary retention and was noted to have supraventricular tachycardia as well. Patient seen and examined today. Per RN, patient had tachycardia with heart rate in the 150s this morning after getting coffee and concern for A.flutter on monitor. Resolved with getting po lopressor Patient currently reports only abdominal discomfort from recent surgery. Passing flatus. Yet to move bowels. Denies any headache, dizziness Denies chest pain, cough, shortness of breath Denies fevers, chills Physical Exam Constitutional: + well hydrated; no acute distress Eyes: PERRL, conjunctivae normal, anicteric sclerae ENMT: external ear and nose normal, oropharynx normal Respiratory: normal respiratory effort, lungs clear to auscultation Cardiovascular: Rate/Rhythm: regular rate and regular rhythm S1 S2 Gastrointestinal (Abdomen): normal bowel sounds, soft, nontender, no hepatosplenomegaly Dressing over surgical site Musculoskeletal: no cyanosis or clubbing, extremities motor strength 5/5 Neurologic: PERRL, EOMI, accommodation nl, no face palsy, no dysarthria Psychiatric: A+Ox3, euthymic affect Results & Data Results & Data ([facility]) Vital Signs (Past 12 Hours) Vital Signs Temp Pulse Resp BP Pulse Ox 10/02/21 12:00 36.5 C 83 18 120/67 97 10/02/21 08:00 84 10/02/21 07:00 36.8 C 79 16 134/77 97 10/02/21 03:26 36.8 C 74 17 143/84 H 94 Laboratory Results Abnormal lab results 10/01/21 10/01/21 10/01/21 Range/Units 15:00 15:00 15:00 RBC (4.7-6.1) M/uL Lymph # (Auto) 1.13 L (1.2-3.4) K/uL [place] # (Auto) 0.61 H (0.11-0.59) K/uL D-Dimer 910 H* (0-500) ug/L FEU Sodium 135 L (136-145) mmol/L Glucose 109 H (70-99(Fasting)) mg/dl Urine Blood (Negative) 10/01/21 10/02/21 10/02/21 Range/Units Unknown 06:15 06:15 RBC 4.57 L (4.7-6.1) M/uL Lymph # (Auto) (1.2-3.4) K/uL [place] # (Auto) (0.11-0.59) K/uL D-Dimer (0-500) ug/L FEU Sodium (136-145) mmol/L Glucose 126 H (70-99(Fasting)) mg/dl Urine Blood Trace H (Negative)
[2021-10-02] MEDS: amLODIPine BESYLATE 5 MG TAB PO SCH (21:15)
[2021-10-02] MEDS: TAMSULOSIN HCL 0.4 MG CAP PO SCH (21:15)
[2021-10-02] MEDS: FLUTICASONE FUROATE 200MCG 14 PUFFS/INHALER INH SCH (21:17)
--- NOTE | 2021-10-03 05:35 | Electrocardiogram Report ---
Test Reason : Blood Pressure : / mmHG Vent. Rate : 130 BPM Atrial Rate : 129 BPM P-R Int : 000 ms QRS Dur : 130 ms QT Int : 344 ms P-R-T Axes : 000 -83 054 degrees QTc Int : 506 ms Poor data quality, interpretation may be adversely affected Atrial flutter vs sinus tachycardia with occasional Premature ventricular complexes Right bundle branch block Left anterior fascicular block Bifascicular block Abnormal ECG When compared with ECG of 01-OCT-2021 14:53, No significant change Confirmed by Joaquim Marrero ([id number]) on 10/03/2021 5:42:15 AM Referred By: REFERRED SELF Confirmed By:Joaquim Marrero
--- NOTE | 2021-10-03 05:41 | Electrocardiogram Report ---
Test Reason : Blood Pressure : / mmHG Vent. Rate : 130 BPM Atrial Rate : 130 BPM P-R Int : 140 ms QRS Dur : 132 ms QT Int : 360 ms P-R-T Axes : 000 -83 042 degrees QTc Int : 529 ms Possible Sinus tachycardia vs atrial flutter Premature ventricular complexes Right bundle branch block Left anterior fascicular block Bifascicular block Abnormal ECG When compared with ECG of 01-OCT-2021 14:33, No significant change Confirmed by Joaquim Marrero ([id number]) on 10/03/2021 5:40:50 AM Referred By: REFERRED SELF Confirmed By:Joaquim Marrero
--- NOTE | 2021-10-03 05:44 | Electrocardiogram Report ---
Test Reason : Blood Pressure : / mmHG Vent. Rate : 091 BPM Atrial Rate : 054 BPM P-R Int : 106 ms QRS Dur : 158 ms QT Int : 400 ms P-R-T Axes : -11 206 121 degrees QTc Int : 492 ms Poor data quality, interpretation may be adversely affected Probable Normal sinus rhythm Premature ventricular complexes Right bundle branch block Abnormal ECG When compared with ECG of 01-OCT-2021 14:55, Significant artifact is now present Confirmed by Joaquim Marrero ([id number]) on 10/03/2021 5:44:09 AM Referred By: REFERRED SELF Confirmed By:Joaquim Marrero
--- NOTE | 2021-10-03 05:47 | Electrocardiogram Report ---
Test Reason : Blood Pressure : / mmHG Vent. Rate : 091 BPM Atrial Rate : 091 BPM P-R Int : 164 ms QRS Dur : 138 ms QT Int : 400 ms P-R-T Axes : 061 -55 048 degrees QTc Int : 492 ms Poor data quality, interpretation may be adversely affected Sinus rhythm with occasional Premature ventricular complexes Right bundle branch block Left anterior fascicular block Bifascicular block Abnormal ECG When compared with ECG of 01-OCT-2021 15:30, Previous ECG with significant artifact Confirmed by Joaquim Marrero ([id number]) on 10/03/2021 5:47:35 AM Referred By: REFERRED SELF Confirmed By:Joaquim Marrero
[2021-10-03 06:02] LABS: Hemoglobin 13.6 g/dL (14.0-18.0); Mean Corpuscular Hgb Conc 33.2 g/dL (32-36); Mean Corpuscular Volume 93.4 fL (80-100); Mean Platelet Volume 9.5 fL (7.4-10.4); Platelet Count 200 K/uL (130-400); RDW Coefficient of Variation 12.5 % (11.5-14.5); RDW Standard Deviation 42.8 fL (36.4-46.3); Red Blood Count 4.39 M/uL (4.7-6.1); White Blood Count 5.95 K/uL (4.8-10.8)
--- NOTE | 2021-10-03 06:23 | Electrocardiogram Report ---
Test Reason : Blood Pressure : / mmHG Vent. Rate : 122 BPM Atrial Rate : 122 BPM P-R Int : 160 ms QRS Dur : 138 ms QT Int : 378 ms P-R-T Axes : 000 -81 035 degrees QTc Int : 538 ms Possible Atrial flutter with occasional Premature ventricular complexes Right bundle branch block Left anterior fascicular block Bifascicular block Abnormal ECG When compared with ECG of 01-OCT-2021 17:00, Sinus rhythm is no longer present Confirmed by Joaquim Marrero ([id number]) on 10/03/2021 6:22:50 AM Referred By: REFERRED SELF Confirmed By:Joaquim Marrero
[2021-10-03 06:30] LABS: Albumin Globulin Ratio 1.3 (0.9-2); Albumin Level 3.5 gm/dl (3.4-5.0); BUN Creatinine Ratio 18.8 (10-20); Bilirubin,Total 0.9 mg/dl (0.2-1.0); Calcium 8.5 mg/dl (8.5-10.1); Creatinine Clr Calc Pharmacy 76.3 ml/min; Est GFR (African American) 92.4 ml/min; Est GFR (Non-African American) 79.8 ml/min; Globulin 2.8 gm/dl (2.5-4.0); Potassium 4.2 mmol/L (3.5-5.1); Total Protein 6.3 gm/dl (6.0-8.3)
--- NOTE | 2021-10-03 07:30 | Cardiology Progress Note ---
Date of Service October 03, 2021 Assessment & Plan (1) Atrial flutter: (2) SVT (supraventricular tachycardia): Plan: Experienced urinary retention post surgery 09/30. Notable ? SVT on monitor prior to draining. Did not respond to adenosine IVP x2. Metoprolol added. I believe that the telemetry and EKG tracings are more characteristic for paroxysmal atrial flutter. No further episodes of atrial flutter since yesterday morning/afternoon. -Increase metoprolol to 25 mg TID- At discharge recommend transitioning metoprolol tartrate to 50 mg in the am and 25 mg in the evening. -Replace lytes as necessary. -Discussed with patient about the pathophysiology of parox Aflutter and stroke risk- Patient now willing to start anticoagulation if necessary, would prefer DOAC over Coumadin. I believe that since no further episodes of atrial flutter have been seen it is reasonable to follow up with him as an outpatient. Will start ASA 81 mg daily as a trial to see if he tolerates without bleeding and obtain 2 week outpatient zio monitor to assess for reoccurrence of aflutter. I will facilitate. -If a flutter returns, patient may be a good candidate for a sotalol, but patient will need anticoagulation prior. -Avoid caffeine products, increase hydration. (3) Urinary retention: Plan: On 09/30 underwent laparoscopic cholecystectomy and open umbilical hernia repair by Dr. Gracie Blunt MD at [facility]. Nicholson catheter has been inserted in the ER and put out 1 L. Nicholson now remvoed. (4) CAD (coronary artery disease), [place] coronary artery: Plan: CAD, 09/08/2016 cardiac cath at [facility] revealed ulcerated subtotal severe proximal right coronary artery lesion, undergoing PCI with Medtronic Integrity 4 mm x 22 mm bare metal stent. Stable, no angina. -Can consider outpatient stress testing in the setting of new onset aflutter. (5) Hypertension: Plan: Well controlled. Plan: Case discussed with Dr. Vides. Admission and Anticipated Discharge Date Admission Date: October 01, 2021 Supervising Physician Co-Signing Physician Notes Patient seen and examined with PRASHANTH Preciado. Agree with findings and assessment as above. Subjective 71 year old male. S/p laparoscopic cholecystectomy and open umbilical hernia repair by Dr. Blunt, 10/01/2021. Initially presented due to urinary retention, found to be in paroxysmal atrial flutter with rates between 120-150. Echo: mild concentric LVH, LVEF 50-55%, septal motion consistent with conduction abnormality, otherwise normal, grade 2 diastolic dysfunction, no significant valvular pathology Lab work this am: unremarkable, potassium improved to 4.2 EKG 10/02: Atrial flutter with occasional PVCs, 122 bpm. Tele: SR 60s, no further PVCs or pAtrial flutter since 09 yesterday am/1 short burst at 2pm, none since. Upon entrance into the room patient was ambulating independnely. Nursing removed nicholson this am. States that he is feeling well and offered no complaints. No chest pain or shortness of breath. No further palpitations. No dizziness or syncope. No orthopnea, PND, or increased lower extremity edema. No fever, chills, cough, hematochezia, melena, or hemoptysis. States that he is willing to go on a blood thinner if necessary- however, he does have reservations due to how active he is and his history of bleeding with straining BMs and occasional urination. Review of Systems Review of Systems: All systems reviewed & are unremarkable except as noted in HPI & below Physical Exam Physical Exam: General: No acute distress. A+Ox3. HEENT: Normocephalic. Atraumatic. Conjunctiva and sclera clear. NECK: No carotid bruits. No JVD. Carotid upstrokes are brisk. Heart: RRR. S1 and S2 noted without murmur, rubs, gallops. PMI non displaced. Lungs: Clear to auscultation. No wheezes, rhonchi, rales. Abdomen: Normal bowel sounds. Soft. Nontender. No masses or organomegaly. No abdominal bruits. Extremities: No edema. No clubbing or cyanosis. Pulses: radial=2/4, posterior tibial=2/4, dorsalis pedis = 2/4. NEURO: No focal deficits. PSYCH: Normal. Results & Data ([place]) Vital Signs (Past 12 Hours) Vital Signs Temp Pulse Pulse Resp BP Pulse Ox 10/03/21 07:08 36.6 C 73 18 147/83 H 100 10/03/21 03:04 37.3 C 60 16 145/86 H 97 10/03/21 00:11 60 10/02/21 23:20 36.8 C 68 18 146/77 H 95 10/02/21 19:26 36.9 C 66 18 141/88 H 98 Laboratory Results Cardiac Enzymes 10/03/21 Range/Units 05:42 AST 13 (13-39) U/L CBC 10/03/21 Range/Units 05:42 WBC 5.95 (4.8-10.8) K/uL RBC 4.39 L (4.7-6.1) M/uL Hgb 13.6 L (14.0-18.0) g/dL Hct 41.0 L (42-52) % Plt Count 200 (130-400) K/uL Comprehensive Metabolic Panel 10/03/21 Range/Units 05:42 Sodium 136 (136-145) mmol/L Potassium 4.2 (3.5-5.1) mmol/L Chloride 105 (98-107) mmol/L Carbon Dioxide 27 (21-32) mmol/L BUN 18 (6-23) mg/dl Creatinine 0.96 (0.6-1.4) mg/dl Glucose 95 (70-99(Fasting)) mg/dl Calcium 8.5 (8.5-10.1) mg/dl AST 13 (13-39) U/L ALT 15 (7-52) U/L Alkaline Phosphatase 66 (34-104) U/L Total Protein 6.3 (6.0-8.3) gm/dl Albumin 3.5 (3.4-5.0) gm/dl Intake and Output 10/02/21 10/03/21 10/03/21 22:59 06:59 14:59 Intake Total 650 / 770 120 / 770 Output Total 1150 / 1700 550 / 1700 Balance -500 / -930 -430 / -930 Intake: Oral 650 / 770 120 / 770 Output: Urine Amount (Catheter) 1150 / 1700 550 / 1700 Nicholson/Indwelling 1150 / 1700 550 / 1700 Other: Weight 85.4 kg Weight Measurement Method Built in [facility]
[2021-10-03] MEDS: PANTOprazole 40 MG TAB PO SCH (08:06)
[2021-10-03] MEDS: METOPROLOL TARTRATE 25 MG TAB PO SCH (08:06)
[2021-10-03] MEDS: ENOXAPARIN INJ 40 MG/0.4 ML SYR SQ SCH (08:07)
[2021-10-03] MEDS: DOCUSATE SODIUM 100 MG CAP PO SCH (08:07)
[2021-10-03] MEDS ORDERED: ASPIRIN 81 MG ECTAB PO SCH (10:45)
--- NOTE | 2021-10-03 16:12 | Discharge Summary ---
Date of Service October 03, 2021 Admission HPI Per Admitting Provider This is a 71 yo M with PMhx of CAD with bare-metal stent in the RCA placed in July 2017 due to VT, HTN, HLD, peptic ulcer disease, and recently underwent laparoscopic cholecystectomy and open umbilical hernia repair by Dr. Blunt yesterday, 10/01/2021. He presents today due to urinary retention. He reports having small amounts of clear yellow urine starting at 5 PM yesterday once he was home, which continued throughout the night into this morning. He was at times incontinent of very small amounts of urine. Patient admits to having some abdominal distention still and feels sore from his procedure. He did not take any pain medication since being home, as he does not like to take pain medication. Patient reports having his last bowel movement yesterday morning prior to surgery however feels slightly constipated as he has not been able to go today. He denies any fevers, sweats or chills. In regards to fast heart rate, he does not know that it is happening, denies lightheadedness, dizziness, shortness of breath, chest pain or palpitations. He has never had any issues with his heart before. Even prior to requiring the coronary artery stent to his RCA in August 2016, he did not classic cardiac symptoms. Nicholson catheter has been inserted in the ER and outs =1 L. Was found to be in SVT prior to urine being drained, which improved afterwards, however seems to go in and out of tachycardia while in the ER. Adenosine milligram and IV 6 mg IV and 12 mg IV was administered in the ER without breaking SVT. He was then given 1 dose of metoprolol tartrate 5 mg IV with slight improvement. We will start metoprolol tartrate 25 mg twice daily with the first dose tonight. D-dimer was obtained and found to be elevated at 917, CTA was then conducted which was negative. Admission Exam Per Admitting Provider General: awake, alert, no apparent distress, appears younger than stated age Head: Normocephalic, atraumatic ENT: PERRL, EOMI, no pharyngeal exudate, mucous membranes moist Chest: Clear to auscultation, on room air, no adventitious breath sounds Cardiac: SVT with rates going from 80s to the 130s while at bedside, Pacer pads in place, no murmur, no JVD, normal peripheral pulses, good capillary refill Abdominal: NABS x 4 quadrants, + laparoscopic scopic incision sites closed, dressing over umbilicus is C/C/I, soft, + mildly distended, minimally tender to palpation, no rebound or guarding Extremities: Normal inspection, no peripheral edema or erythema, calfs nontender to palpation Psych: Normal mood and affect Neuro: AAO x 3, strength intact bilaterally and rated 5/5, no motor deficits, speech is clear, no peripheral sensory deficits Principal Diagnosis Urinary retention SVT Atrial flutter Discharge Exam Constitutional + well hydrated; no acute distress Eyes PERRL, conjunctivae normal, anicteric sclerae ENMT external ear and nose normal, oropharynx normal Respiratory normal respiratory effort, lungs clear to auscultation Cardiovascular Rate/Rhythm: regular rate and regular rhythm S1 S2 Gastrointestinal (Abdomen) normal bowel sounds, soft, nontender, no hepatosplenomegaly Clean dressing over surgical site Musculoskeletal no cyanosis or clubbing, extremities motor strength 5/5 Neurologic PERRL, EOMI, accommodation nl, no face palsy, no dysarthria Psychiatric A+Ox3, euthymic affect Discharge Data Allergies Allergy/AdvReac Type Severity Reaction Status Date / Time clopidogrel Allergy Intermediate hives and Verified 09/30/21 09:06 itching tetanus toxoid, adsorbed Allergy Unknown SWELLING Verified 09/30/21 09:06 TO EXTREMITY aspirin AdvReac Bleeds Verified 10/01/21 17:39 when voids Consultations 10/01/21 17:58 Consult Cardiology Routine Consult Urology Routine Ordered Studies 10/01/21 16:21 CT angio chest PE protocol Stat Lungs and pleura: Atelectasis versus scarring is seen. Bronchial wall thickening is seen. Heart and pericardium: Heart size is normal. No pericardial effusion. Vessels: Moderate atherosclerotic changes in the aorta and coronary arteries. No pulmonary embolus is seen. Mediastinum and curtis: Subcentimeter lymph nodes are seen. Chest wall and lower neck: Subcentimeter thyroid nodules are noted which do not require follow-up by ACR criteria. Abdomen: Patient is status post cholecystectomy. Bones: Degenerative changes in the thoracic spine. Degenerative changes are also seen in the bilateral glenohumeral joints. IMPRESSION: No evidence of pulmonary embolism. Atelectasis versus scarring and bronchial wall thickening is seen Hospital Course (1) Urinary retention: Urinary retention likely due to recent surgical procedure Nicholson catheter was placed in the ER with 1 L of urine out Was started on flomax Patient was evaluated by Urology Nicholson was kept in for 48h Passed voiding trial Patient to follow up with Urology outpatient (2) Atrial flutter: (3) SVT (supraventricular tachycardia): Was noted to have SVT on admission Got adenosine IV x2 and lopressor IV in the ER and was started on po metopressor tartarate D dimer elevated at 910 CTA was conducted and was negative for PE Had paroxysmal Atrial flutter while inpatient Atrial flutter reverted to sinus rhythm spontaneously Now back to sinus rhythm Was evaluated by Cardiology TTE showed normal EF 50-55%, mild concentric LVH, septal motion is consistent with conduction abnormality. Grade 2 DD Patient initially declined anticoagulation or antiplatelet. However, patient changed his mind today Cardiology recommended started aspirin 81mg daily trial to ensure no bleeding. Patient will follow up with [facility] outpatient. Patient need outpatient zio patch testing If Aflutter recurs, may be a good candidate for sotalol but will need anticoagulation prior to that Discharged on metoprolol tartarate 50mg AM and 25mg PM (4) CAD (coronary artery disease), [place] coronary artery: History of such, has bare-metal stent placed in RCA in August 2016 Patient to follow up with Cardiology outpatient (5) Hypertension: Continue home med (6) HLD (hyperlipidemia): Not on any cholesterol medication Total Time Total Time Spent Total Time Spent (In Minutes): 45 Total Time Includes: Examination of the Patient, Discharge Planning, Medication Reconciliation and Communication With Other Providers Discharge Plan Discharge Items Patient Disposition: Home - Self-Care Reason For Visit: URINARY RETENTION Discharge Diagnosis: Urinary retention Supraventricular tachycardia Atrial flutter Activity: Resume your previous activity Non-emergency contact: Primary Care Provider and [facility] Call non-emergency contact if: you have any medication questions and your symptoms worsen Follow-up/Referrals: Scott Manzano MD [Outside Practitioners] - (Date & Time 10/09/2021 11:45 AM Provider Scott Manzano MD Department Urology, [facility] ) Dustin Salazar MD [Primary Care Provider] - (Date & Time 10/07/2021 12:20 PM Provider Dustin Salazar MD Department Family Medicine [facility] ) Diet: Heart Healthy Addtl Attending Provider Instructions: Mr Paiz. You came to the hospital for inability to urinate after your recent surgery. You were managed for urinary retention and required nicholson catheter. You were also noted to have fast heart rate and abnormal heart rhythm called Atrial flutter. You were evaluated by [facility] and started on metoprolol for better heart rate control. You were also started on aspirin for now. Please monitor for signs of bleeding and ensure follow up with your Cardiology. You will need zio patch monitor outpatient. Please ensure follow up with your Primary doctor and Urology It was a pleasure taking care of you. Pending Studies at Discharge: No Stand-Alone Forms: My [facility], Smoking Cessation Medications and DC Order Prescriptions: New tamsulosin 0.4 mg Capsule 0.4 mg PO HS 30 Days Qty: 30 RF: 0 metoprolol tartrate 25 mg Tablet See Rx Instructions .ROUTE .COMPLEX Qty: 90 RF: 0 aspirin 81 mg Tablet,Delayed Release (Dr/Ec) 81 mg PO QAM 30 Days Qty: 30 RF: 0 Continued amlodipine 10 mg Tablet 10 mg PO QPM RF: 0 polyethylene glycol 3350 [Miralax] 17 gram/dose Powder 17 g PO 3XWK RF: 0 esomeprazole magnesium [Nexium 24HR] 20 mg Capsule,Delayed Release(Dr/Ec) 20 mg PO QAM RF: 0 oxycodone-acetaminophen [Percocet] 5-325 mg tablet 1 tab PO Q6H PRN (Reason: pain) Qty: 30 RF: 0 Asmanex Twisthaler 220 mcg/ actuation (30) Aerosol Powdr Breath Activated 1 inh INHALATION BID RF: 0 Discharge Orders: Discharge Order (Routine); Ordered 10/03/21 Ordered By: Patricia Mcghee Admission Data Admit Date/Time: 10/01/21 17:18 Attending Provider: Patricia Mcghee I. Admit Provider: Kayla Lima Primary Care Provider: Dustin Salazar Other Providers: Sudhir Vides ; Krishna Grider ; Kayla Lima Other Interventions: Discharge Summary Assessment (RN) Last Done: 10/03/21 12:48
== END 2021-10-03 13:15 | disposition home or self-care (01) | DRG 660 ==
LOC: ED 14:25 → SUATTDRO 17:18 → 2S 17:18